=== PATIENT | female | born 1940 | race Caucasian/White ===

== ENCOUNTER → 2016-06-05 | Outpatient (REF) | payer MEDICARE, MEDICAID ==
[~2016-06-05] MED LIST: ACET650T12 PO; ALBU17IN2 INH; AMAR1TAB5 PO; ASPI1TAB PO; ATOR40TA PO; BISO5TAB5 PO; CALCTAB68 PO; CELE100C PO; ESOM1CAP5 PO; FOLI1TAB2 PO; GLIM4TAB PO; GLUC850T PO; HYDR200T3 PO; KEPP500T6 PO; LIPI20TA PO; MECL12.575 PO; MECL25CH PO; METH2.5TA PO; MICR10CA PO; NEXI1CAP4 PO; NYST100024 TOP; SLOWTAB2 PO; TRAD5TAB PO; TRIA37.5 PO; ULTR0.0510 TOP; VALS1TAB48 PO; VITA50003 PO; XOPEAER INH; ZOFR20TA PO; ZYLO300T4 PO
[2016-06-05 17:49] LABS: BASO # 0.1 K/mm3 (0.0-0.2); BASO % 0.7 % (0.0-1.0); EOS # 0.2 K/mm3 (0.0-0.50); EOS % 2.3 % (0.0-3.0); LARGE UNSTAINED CELL # 0.1 K/mm3 (0.0-0.4); LARGE UNSTAINED CELL % 1.5 % (0.0-4.0); LYMPH # 2.4 K/mm3 (1.5-4.5); MEAN CORPUSCULAR HEMOGLOBIN 24.2 pg (27.0-33.0); MEAN CORPUSCULAR VOLUME 80.6 fl (80.0-96.0); MONO # 0.4 K/mm3 (0.0-0.8); MONO % 4.9 % (0.0-5.0); NEUTROPHILS % 65.7 % (36.0-66.0); PLATELET COUNT, AUTOMATED 268 k/mm3 (150-450); RED CELL DISTRIBUTION WIDTH 16.2 % (11.5-14.5); WHITE BLOOD COUNT 9.1 K/mm3 (4.0-10.0)
[2016-06-05 17:50] LABS: ALBUMIN 3.4 GM/DL (3.2-5.2); ALBUMIN/GLOBULIN RATIO 0.85 (1.00-1.93); ALKALINE PHOSPHATASE 235 U/L (45-117); ALT/SGPT 16 U/L (12-78); ANION GAP 9 MEQ/L (8-16); AST/SGOT 19 U/L (15-37); BILIRUBIN,TOTAL 0.3 MG/DL (0.2-1.0); BLOOD UREA NITROGEN 15 MG/DL (7-18); CALCIUM LEVEL 8.9 MG/DL (8.8-10.2); CARBON DIOXIDE LEVEL 27 MEQ/L (21-32); CHLORIDE LEVEL 107 MEQ/L (98-107); CREATININE FOR GFR 0.89 MG/DL (0.55-1.02); FERRITIN 10 NG/ML (8-252); GLOMERULAR FILTRATION RATE > 60.0 (>39); GLUCOSE, FASTING 105 MG/DL (83-110); PERCENT SATURATION 7.4 % (13.2-37.4); SODIUM LEVEL 143 MEQ/L (136-145); TOTAL IRON BINDING CAPACITY 471 UG/DL (250-450); TOTAL PROTEIN 7.4 GM/DL (6.4-8.2)
[2016-06-05 17:51] LABS: ADD MORPHOLOGY? YES
[2016-06-05 18:52] LABS: ANISOCYTOSIS 1+; HYPOCHROMASIA 1+; OVALOCYTES 1+; POIKILOCYTOSIS 1+
== END ==
LOC: M LABNEURO 16:54
PROVIDERS: ATTEND Family Medicine
DX: D50.9 Iron deficiency anemia, unspecified (principal); N18.3 Chronic kidney disease, stage 3 (moderate); E11.9 Type 2 diabetes mellitus without complications; M10.9 Gout, unspecified; N20.0 Calculus of kidney; R31.0 Gross hematuria

== ENCOUNTER → 2016-07-25 | Outpatient (REF) | payer MEDICARE, MEDICAID ==
[~2016-07-25] MED LIST changes: +TUMS500C PO
[2016-07-25 18:34] LABS: BASO # 0.1 K/mm3 (0.0-0.2); BASO % 0.7 % (0.0-1.0); EOS # 0.2 K/mm3 (0.0-0.50); LARGE UNSTAINED CELL # 0.2 K/mm3 (0.0-0.4); LARGE UNSTAINED CELL % 1.7 % (0.0-4.0); LYMPH # 3.1 K/mm3 (1.5-4.5); LYMPH % 26.6 % (24.0-44.0); MEAN CORPUSCULAR HEMOGLOBIN 25.1 pg (27.0-33.0); MEAN CORPUSCULAR HGB CONC 30.1 g/dl (32.0-36.5); MEAN CORPUSCULAR VOLUME 83.4 fl (80.0-96.0); MONO # 0.5 K/mm3 (0.0-0.8); MONO % 4.2 % (0.0-5.0); NEUTROPHILS # 7.1 K/mm3 (1.8-7.7); NEUTROPHILS % 64.8 % (36.0-66.0); PLATELET COUNT, AUTOMATED 279 k/mm3 (150-450); RED CELL DISTRIBUTION WIDTH 15.8 % (11.5-14.5); WHITE BLOOD COUNT 10.9 K/mm3 (4.0-10.0)
[2016-07-25 19:16] LABS: INR 0.95
[2016-07-25 19:40] LABS: ALBUMIN 3.3 GM/DL (3.2-5.2); ALBUMIN/GLOBULIN RATIO 0.77 (1.00-1.93); BILIRUBIN,TOTAL 0.3 MG/DL (0.2-1.0); CALCIUM LEVEL 8.9 MG/DL (8.8-10.2); CREATININE FOR GFR 0.96 MG/DL (0.55-1.02); GLOMERULAR FILTRATION RATE 59.8 (>39); MAGNESIUM LEVEL 1.6 MG/DL (1.8-2.4); PERCENT SATURATION 5.5 % (13.2-37.4); POTASSIUM SERUM 4.6 MEQ/L (3.5-5.1); TOTAL PROTEIN 7.6 GM/DL (6.4-8.2)
== END ==
LOC: M LABDRAWP 18:15
PROVIDERS: ATTEND Family Medicine
DX: Z01.818 Encounter for other preprocedural examination (principal); I10 Essential (primary) hypertension; D50.0 Iron deficiency anemia secondary to blood loss (chronic); E11.9 Type 2 diabetes mellitus without complications

== ENCOUNTER → 2016-08-02 | Day surgery (SDC) | payer MEDICARE, MEDICAID ==
[~2016-08-02] VITALS: Ht 149.9 cm; Wt 77.1 kg
[~2016-08-02] MED LIST changes: +ACETAMINOPHEN 325 MG TAB PO PRN; +AcetaZOLAMIDE 500 MG ER CAP PO ONE; +BSS with VANC/TOB/EPI for EYE CASES IR ONE; +CYCLOPENTOLATE 2% OPHTH SOLN OD ONE; +D5W/0.2% SODIUM CHLORIDE 250 ML IV SCH; +HEALON DUET (HEALON 10MG/ML 0.55ML & HEALON ENDOCOAT 30MG/ML 0.85ML) As Ordered ONE; +KETOROLAC 0.5% OPHTH SOLN OD ONE; +LIDOCAINE 1% SDV 5 ML VIAL As Ordered ONE; +LIDOCAINE 4% INJ 5 ML AMP OU ONE; +MIDAZOLAM INJ 2 MG/2 ML VIAL (J2250) As Ordered ONE; +MOXIFLOXACIN IN BSS 0.25MG/0.25ML INTRACAMERAL INJ (OR EYE ONLY)(J2280) As Ordered ONE; +OFLOXACIN 0.3 % (OCUFLOX) OPTH SOL 5ML OD ONE; +ONDANSETRON 4MG/2ML VIAL (J2405) As Ordered ONE; +ONDANSETRON 4MG/2ML VIAL (J2405) IV PRN; +PHENYLEPHRINE 2.5% OPHTH SOL 2ML OD ONE; +POVIDONE-IODINE 5% OPHTH PREP SOL 30ML As Ordered ONE; +PROPARACAINE 0.5% OPHTH SOL 15ML OD PRN; +TRIAMCINOLONE PRES FR 40 MG/ML 1ML(TRIESENCE)(OR EYE ONLY)(J3300 PER 1MG) As Ordered ONE; +TRIMETHOBENZAMIDE 300 MG CAP PO PRN; +TROPICAMIDE 1% OPHTH SOLN 2 ML OD ONE; +fentaNYL 100 MCG/2 ML INJECTION (J3010) As Ordered ONE; +ferous sulfate PO
[2016-08-02 11:15] VITALS: BP 175/75
--- NOTE | 2016-08-02 11:48 | RO ---
DATE OF PROCEDURE: 08/02/2016 PREPROCEDURE DIAGNOSIS: Cataract of right eye. POSTPROCEDURE DIAGNOSIS: Cataract of right eye. PROCEDURE: Femtosecond laser and phacoemulsification of the intraocular lens with lens implantation right eye. Intraocular lens power used was PBC00, 22.5 diopter. SURGEON: Rian New MD CAST ASSOCIATE: None. ANESTHESIA: Local IV standby. FINDINGS: Cataract of right eye. COMPLICATIONS: None. DESCRIPTION OF PROCEDURE: The patient was brought to the operating room and laid in supine position. A lid speculum was placed, and patient was brought under the femtosecond laser. After the satisfactory placement of the patient interface, primary incision, secondary incision, and arcuate incisions with lens fragmentation was done without any complication per plan. The patients interface was then removed and lid speculum removed. Patient was placed under the microscope. The eye was prepped and draped in a sterile fashion for ophthalmic surgery. Lid speculum was placed. The secondary incision was opened, and EndoCoat was injected into the anterior chamber. The temporal clear corneal incision was then opened and capsulorrhexis removed, followed by hydrodissection. This was followed by phacoemulsification of the lens within the capsular bag. Cortical material was then aspirated, and Healon was injected into the capsular bag. Intraocular lens was then placed. Excess Healon was aspirated. Wound was hydrated. The lid speculum was removed, and patient was returned to the recovery room in stable condition.
== END | disposition home or self-care (01) ==
LOC: M SDC 07:21
PROVIDERS: ATTEND Ophthalmology
DX: H25.9 Unspecified age-related cataract (principal); I10 Essential (primary) hypertension; E11.9 Type 2 diabetes mellitus without complications; Z86.73 Personal history of transient ischemic attack (TIA), and cerebral infarction without residual deficits; K21.9 Gastro-esophageal reflux disease without esophagitis; D64.9 Anemia, unspecified; L40.8 Other psoriasis; Z91.040 Latex allergy status; Z88.7 Allergy status to serum and vaccine; Z79.899 Other long term (current) drug therapy
CPT/HCPCS: 66984; J2250; J2405; J3010; J3300; V2632

== ENCOUNTER → 2016-08-28 | Outpatient (CLI) | payer MEDICARE, MEDICAID ==
[~2016-08-28] MED LIST changes: -ACETAMINOPHEN 325 MG TAB PO PRN; -AcetaZOLAMIDE 500 MG ER CAP PO ONE; -BSS with VANC/TOB/EPI for EYE CASES IR ONE; -CYCLOPENTOLATE 2% OPHTH SOLN OD ONE; -D5W/0.2% SODIUM CHLORIDE 250 ML IV SCH; -HEALON DUET (HEALON 10MG/ML 0.55ML & HEALON ENDOCOAT 30MG/ML 0.85ML) As Ordered ONE; -KETOROLAC 0.5% OPHTH SOLN OD ONE; -LIDOCAINE 1% SDV 5 ML VIAL As Ordered ONE; -LIDOCAINE 4% INJ 5 ML AMP OU ONE; -MIDAZOLAM INJ 2 MG/2 ML VIAL (J2250) As Ordered ONE; -MOXIFLOXACIN IN BSS 0.25MG/0.25ML INTRACAMERAL INJ (OR EYE ONLY)(J2280) As Ordered ONE; -OFLOXACIN 0.3 % (OCUFLOX) OPTH SOL 5ML OD ONE; -ONDANSETRON 4MG/2ML VIAL (J2405) As Ordered ONE; -ONDANSETRON 4MG/2ML VIAL (J2405) IV PRN; -PHENYLEPHRINE 2.5% OPHTH SOL 2ML OD ONE; -POVIDONE-IODINE 5% OPHTH PREP SOL 30ML As Ordered ONE; -PROPARACAINE 0.5% OPHTH SOL 15ML OD PRN; -TRIAMCINOLONE PRES FR 40 MG/ML 1ML(TRIESENCE)(OR EYE ONLY)(J3300 PER 1MG) As Ordered ONE; -TRIMETHOBENZAMIDE 300 MG CAP PO PRN; -TROPICAMIDE 1% OPHTH SOLN 2 ML OD ONE; -fentaNYL 100 MCG/2 ML INJECTION (J3010) As Ordered ONE
--- NOTE | 2016-08-28 13:16 | REP ---
Digital diagnostic unilateral right breast mammogram with CAD: History: 6-month follow-up for ultrasound-guided cyst aspiration. Comparison mammography April 07, 2016 and February 23, 2016. Findings: The nodular density seen in the upper outer quadrant of the right breast on the February 23, 2016 study has resolved and not recurred. Breast parenchyma remains fat replaced otherwise. There are inspissated ductal type benign calcifications and there is vascular calcification noted in the right breast as before. No neodensity or other significant abnormality. Impression: BIRADS category 1 negative right breast mammogram. This mammogram was interpreted with the aid of an FDA-approved computer-aided detection system. The patient states she/he had a clinical breast exam in March 28, 2016 The patient letter being requested is M2. Signed by Nader Chandler MD 08/28/2016 02:34 P
== END ==
LOC: M RAD 11:08
PROVIDERS: ATTEND Family Medicine
DX: Z12.31 Encounter for screening mammogram for malignant neoplasm of breast (principal)

== ENCOUNTER → 2016-12-25 | Outpatient (REF) | payer MEDICARE, MEDICAID ==
[~2016-12-25] MED LIST changes: -ATOR40TA PO; +ATOR40TA75 PO; -FOLI1TAB2 PO; +FOLI1TAB4 PO; +KEPP1TAB PO; -KEPP500T6 PO; +LEVAINH INH; +MECL1CHW2 PO; -MECL25CH PO; -NYST100024 TOP; +NYST1POW9 TOP; +VITA1CAP40 PO; -VITA50003 PO; -XOPEAER INH
[2016-12-25 13:28] LABS: ALBUMIN 3.1 GM/DL (3.2-5.2); ALBUMIN/GLOBULIN RATIO 0.79 (1.00-1.93); BILIRUBIN,TOTAL 0.3 MG/DL (0.2-1.0); CALCIUM LEVEL 9.3 MG/DL (8.8-10.2); CREATININE FOR GFR 0.96 MG/DL (0.55-1.02); GLOMERULAR FILTRATION RATE 59.8 (>39); PERCENT SATURATION 10.6 % (13.2-45.0); POTASSIUM SERUM 4.3 MEQ/L (3.5-5.1)
[2016-12-25 13:54] LABS: BASO # 0.1 K/mm3 (0.0-0.2); BASO % 0.6 % (0.0-1.0); EOS # 0.2 K/mm3 (0.0-0.50); EOS % 1.8 % (0.0-3.0); LARGE UNSTAINED CELL # 0.1 K/mm3 (0.0-0.4); LARGE UNSTAINED CELL % 1.4 % (0.0-4.0); LYMPH # 1.8 K/mm3 (1.5-4.5); MEAN CORPUSCULAR HEMOGLOBIN 28.7 pg (27.0-33.0); MEAN CORPUSCULAR HGB CONC 32.7 g/dl (32.0-36.5); MONO # 0.4 K/mm3 (0.0-0.8); MONO % 4.5 % (0.0-5.0); NEUTROPHILS # 6.6 K/mm3 (1.8-7.7); NEUTROPHILS % 71.7 % (36.0-66.0); PLATELET COUNT, AUTOMATED 250 k/mm3 (150-450); RED CELL DISTRIBUTION WIDTH 14.7 % (11.5-14.5); WHITE BLOOD COUNT 9.2 K/mm3 (4.0-10.0)
== END ==
LOC: M LABDRAW1 12:49
PROVIDERS: ATTEND Family Medicine
DX: D50.9 Iron deficiency anemia, unspecified (principal); E78.5 Hyperlipidemia, unspecified; E11.9 Type 2 diabetes mellitus without complications

== ENCOUNTER → 2017-01-19 | Outpatient (REF) | payer MEDICARE, MEDICAID | LOC: M LABDRAW1 13:52 | PROVIDERS: ATTEND Family Medicine | DX: M45.9 Ankylosing spondylitis of unspecified sites in spine (principal); E11.9 Type 2 diabetes mellitus without complications ==

== ENCOUNTER → 2017-04-11 | Outpatient (REF) | payer MEDICARE, MEDICAID ==
[2017-04-11 12:25] LABS: BASO # 0.1 10^3/uL (0.0-0.2); BASO % 0.6 % (0.0-1.0); EOS # 0.1 10^3/uL (0.0-0.50); EOS % 0.9 % (0.0-3.0); HEMATOCRIT 38.8 % (36.0-47.0); HEMOGLOBIN 11.9 g/dl (12.0-16.0); IMMATURE GRANULOCYTE % 0.4 % (0-0); LYMPH # 1.1 10^3/uL (1.5-4.5); LYMPH % 13.5 % (24.0-44.0); MEAN CORPUSCULAR HEMOGLOBIN 26.6 pg (27.0-33.0); MEAN CORPUSCULAR HGB CONC 30.7 g/dl (32.0-36.5); MEAN CORPUSCULAR VOLUME 86.8 fl (80.0-96.0); MONO # 0.5 10^3/uL (0.0-0.8); MONO % 6.7 % (0.0-5.0); NEUTROPHILS # 6.1 10^3/uL (1.8-7.7); NEUTROPHILS % 77.9 % (36.0-66.0); PLATELET COUNT, AUTOMATED 295 10^3/uL (150-450); RED BLOOD COUNT 4.47 10^6/uL (4.00-5.40); RED CELL DISTRIBUTION WIDTH 14.6 % (11.5-14.5); WHITE BLOOD COUNT 7.9 10^3/uL (4.0-10.0)
[2017-04-11 12:34] LABS: PTH INTACT 61.4 PG/ML (14.0-72.0); TOTAL 25(OH) VITAMIN D 95.5 NG/ML (30.0-100.0); VITAMIN B12 LEVEL 947 PG/ML (247-911)
[2017-04-11 12:36] LABS: ALBUMIN 3.4 GM/DL (3.2-5.2); ALBUMIN/GLOBULIN RATIO 0.85 (1.00-1.93); ALKALINE PHOSPHATASE 225 U/L (45-117); ALT/SGPT 23 U/L (12-78); ANION GAP 8 MEQ/L (8-16); AST/SGOT 22 U/L (7-37); BILIRUBIN,TOTAL 0.3 MG/DL (0.2-1.0); BLOOD UREA NITROGEN 18 MG/DL (7-18); CALCIUM LEVEL 8.8 MG/DL (8.8-10.2); CARBON DIOXIDE LEVEL 29 MEQ/L (21-32); CHLORIDE LEVEL 103 MEQ/L (98-107); CREATININE FOR GFR 1.05 MG/DL (0.55-1.02); FERRITIN 64 NG/ML (8-252); GLUCOSE, FASTING 182 MG/DL (83-110); IRON (FE) 31 UG/DL (50-170); POTASSIUM SERUM 4.1 MEQ/L (3.5-5.1); SODIUM LEVEL 140 MEQ/L (136-145); TOTAL IRON BINDING CAPACITY 344 UG/DL (250-450); TOTAL PROTEIN 7.4 GM/DL (6.4-8.2)
[2017-04-11 13:30] LABS: ESTIMATED AVERAGE GLUCOSE 186 MG/DL (60-110); HEMOGLOBIN A1c 8.1 %
== END ==
LOC: M LABNEURO 10:38
DX: D50.9 Iron deficiency anemia, unspecified (principal); E55.9 Vitamin D deficiency, unspecified; E11.9 Type 2 diabetes mellitus without complications
CPT/HCPCS: 83550

== ENCOUNTER → 2017-07-10 | Outpatient (REF) | payer MEDICARE, MEDICAID ==
[2017-07-10 13:10] LABS: BASO # 0.1 10^3/uL (0.0-0.2); BASO % 0.5 % (0.0-1.0); EOS # 0.1 10^3/uL (0.0-0.50); EOS % 0.7 % (0.0-3.0); HEMATOCRIT 38.1 % (36.0-47.0); HEMOGLOBIN 11.8 g/dl (12.0-15.5); IMMATURE GRANULOCYTE % 0.7 % (0-3.0); LYMPH # 2.5 10^3/uL (1.5-4.5); LYMPH % 21.1 % (24.0-44.0); MEAN CORPUSCULAR HEMOGLOBIN 27.8 pg (27.0-33.0); MEAN CORPUSCULAR VOLUME 89.6 fl (80.0-96.0); MONO # 0.5 10^3/uL (0.0-0.8); MONO % 3.7 % (0.0-5.0); NEUTROPHILS # 8.9 10^3/uL (1.8-7.7); NEUTROPHILS % 73.3 % (36.0-66.0); PLATELET COUNT, AUTOMATED 236 10^3/uL (150-450); RED BLOOD COUNT 4.25 10^6/uL (4.00-5.40); RED CELL DISTRIBUTION WIDTH 15.4 % (11.5-14.5); RETIC HEMOGLOBIN EQUIVALENT 31.2 pg (24-36); RETICULOCYTE # 57.4 10^9/L (17-77); RETICULOCYTE % 1.4 % (0.5-1.5); WHITE BLOOD COUNT 12.1 10^3/uL (4.0-10.0)
[2017-07-10 13:16] LABS: APPEARANCE, URINE HAZY (CLEAR); BACTERIA, URINE AUTO 1+ (NEGATIVE); BILIRUBIN, URINE AUTO NEGATIVE (NEGATIVE); BLOOD, URINE BLOOD 1+ (NEGATIVE); COLOR, URINE STRAW (YELLOW); GLUCOSE, URINE (UA) AUTO NEGATIVE (NEGATIVE); KETONE, URINE AUTO NEGATIVE (NEGATIVE); LEUKOCYTE ESTERASE, URINE AUTO 3+ (NEGATIVE); MUCUS, URINE SMALL (NEGATIVE); NITRITE, URINE AUTO NEGATIVE (NEGATIVE); PROTEIN, URINE AUTO NEGATIVE (NEGATIVE); RBC, URINE AUTO 8 /HPF (0-3); SPECIFIC GRAVITY URINE AUTO 1.005 (1.002-1.035); SQUAMOUS EPITHELIAL CELL UR AU 3 /HPF (0-6); UROBILINOGEN, URINE AUTO 0.2 mg/dL (0.0-2.0); WBC, URINE AUTO 7 /HPF (0-3)
[2017-07-10 13:32] LABS: ALBUMIN 3.6 GM/DL (3.2-5.2); ALKALINE PHOSPHATASE 177 U/L (45-117); ALT/SGPT 28 U/L (12-78); ANION GAP 6 MEQ/L (8-16); AST/SGOT 25 U/L (7-37); BILIRUBIN,TOTAL 0.3 MG/DL (0.2-1.0); BLOOD UREA NITROGEN 16 MG/DL (7-18); CALCIUM LEVEL 9.2 MG/DL (8.8-10.2); CARBON DIOXIDE LEVEL 29 MEQ/L (21-32); CHLORIDE LEVEL 110 MEQ/L (98-107); CREATININE FOR GFR 0.97 MG/DL (0.55-1.30); GLOMERULAR FILTRATION RATE 59.1 (>39); GLUCOSE, FASTING 114 MG/DL (70-100); MAGNESIUM LEVEL 1.8 MG/DL (1.8-2.4); POTASSIUM SERUM 4.4 MEQ/L (3.5-5.1); SODIUM LEVEL 145 MEQ/L (136-145); TOTAL PROTEIN 7.6 GM/DL (6.4-8.2)
[2017-07-10 13:44] LABS: ESTIMATED AVERAGE GLUCOSE 186 MG/DL (60-110); HEMOGLOBIN A1c 8.1 %
[2017-07-10 13:49] LABS: CREATININE, URINE < 13.0 MG/DL; MALB URINE SIEMENS 83.1 MG/L
== END ==
LOC: M SFHCPLAZ 10:52
DX: G40.909 Epilepsy, unspecified, not intractable, without status epilepticus (principal); E11.9 Type 2 diabetes mellitus without complications; N18.3 Chronic kidney disease, stage 3 (moderate); E55.9 Vitamin D deficiency, unspecified; D50.9 Iron deficiency anemia, unspecified
CPT/HCPCS: 83735

== ENCOUNTER → 2017-08-29 | Outpatient (CLI) | payer MEDICARE, MEDICAID | LOC: M WHC 13:07 | DX: Z12.31 Encounter for screening mammogram for malignant neoplasm of breast (principal); M85.80 Other specified disorders of bone density and structure, unspecified site | CPT/HCPCS: 77067 ==

== ENCOUNTER → 2017-10-23 | Outpatient (REF) | payer MEDICARE, MEDICAID ==
[2017-10-23 13:13] LABS: BASO # 0.1 10^3/uL (0.0-0.2); BASO % 0.4 % (0.0-1.0); EOS # 0.1 10^3/uL (0.0-0.50); EOS % 0.7 % (0.0-3.0); HEMATOCRIT 40.9 % (36.0-47.0); HEMOGLOBIN 12.9 g/dl (12.0-15.5); IMMATURE GRANULOCYTE % 0.7 % (0-3.0); LYMPH # 3.1 10^3/uL (1.5-4.5); LYMPH % 25.4 % (24.0-44.0); MEAN CORPUSCULAR HEMOGLOBIN 29.1 pg (27.0-33.0); MEAN CORPUSCULAR HGB CONC 31.5 g/dl (32.0-36.5); MEAN CORPUSCULAR VOLUME 92.1 fl (80.0-96.0); MONO # 0.6 10^3/uL (0.0-0.8); MONO % 4.7 % (0.0-5.0); NEUTROPHILS # 8.3 10^3/uL (1.8-7.7); NEUTROPHILS % 68.1 % (36.0-66.0); PLATELET COUNT, AUTOMATED 242 10^3/uL (150-450); RED BLOOD COUNT 4.44 10^6/uL (4.00-5.40); RETIC HEMOGLOBIN EQUIVALENT 33.8 pg (24-36); RETICULOCYTE # 72.8 10^9/L (17-77); RETICULOCYTE % 1.6 % (0.5-1.5); WHITE BLOOD COUNT 12.2 10^3/uL (4.0-10.0)
[2017-10-23 13:31] LABS: ALBUMIN 3.6 GM/DL (3.2-5.2); ALBUMIN/GLOBULIN RATIO 0.88 (1.00-1.93); ALKALINE PHOSPHATASE 152 U/L (45-117); ALT/SGPT 23 U/L (12-78); ANION GAP 8 MEQ/L (8-16); AST/SGOT 13 U/L (7-37); BILIRUBIN,TOTAL 0.4 MG/DL (0.2-1.0); BLOOD UREA NITROGEN 22 MG/DL (7-18); C REACTIVE PROTEIN QUANTITATIV 0.46 MG/DL (0.00-0.30); CALCIUM LEVEL 9.3 MG/DL (8.8-10.2); CARBON DIOXIDE LEVEL 32 MEQ/L (21-32); CHLORIDE LEVEL 105 MEQ/L (98-107); CHOLESTEROL LEVEL 153 MG/DL (<200); CHOLESTEROL RISK RATIO 2.318 (<5); CPK CREATINE PHOSPHOKINASE 61 U/L (26-192); CREATININE FOR GFR 1.22 MG/DL (0.55-1.30); GLOMERULAR FILTRATION RATE 45.3 (>39); GLUCOSE, FASTING 124 MG/DL (70-100); HDL CHOLESTEROL 66 MG/DL (>40); LDL CHOLESTEROL 58.6 MG/DL (<100); NON-HDL-C 87 MG/DL; POTASSIUM SERUM 3.7 MEQ/L (3.5-5.1); SODIUM LEVEL 145 MEQ/L (136-145); TOTAL PROTEIN 7.7 GM/DL (6.4-8.2); TRIGLYCERIDES LEVEL 142 MG/DL (<150)
[2017-10-23 13:48] LABS: ESTIMATED AVERAGE GLUCOSE 209 MG/DL (60-110); HEMOGLOBIN A1c 8.9 %
[2017-10-23 13:58] LABS: PTH INTACT 73.2 PG/ML (18.5-88.0); TOTAL 25(OH) VITAMIN D 80.9 NG/ML (30.0-100.0)
[2017-10-23 18:04] LABS: APPEARANCE, URINE CLEAR (CLEAR); BACTERIA, URINE AUTO 1+ (NEGATIVE); BILIRUBIN, URINE AUTO NEGATIVE (NEGATIVE); BLOOD, URINE BLOOD NEGATIVE (NEGATIVE); COLOR, URINE STRAW (YELLOW); GLUCOSE, URINE (UA) AUTO NEGATIVE (NEGATIVE); KETONE, URINE AUTO NEGATIVE (NEGATIVE); LEUKOCYTE ESTERASE, URINE AUTO 1+ (NEGATIVE); MUCUS, URINE SMALL (NEGATIVE); NITRITE, URINE AUTO NEGATIVE (NEGATIVE); PROTEIN, URINE AUTO NEGATIVE (NEGATIVE); RBC, URINE AUTO 2 /HPF (0-3); SPECIFIC GRAVITY URINE AUTO 1.008 (1.002-1.035); SQUAMOUS EPITHELIAL CELL UR AU 4 /HPF (0-6); UROBILINOGEN, URINE AUTO 0.2 mg/dL (0.0-2.0); WBC, URINE AUTO 1 /HPF (0-3)
[2017-10-23 18:05] LABS: CREATININE, URINE 36.9 MG/DL; MAU/CREAT RATIO 211.3 MCG/MG (0.0-30.0)
== END ==
LOC: M SFHCPLAZ 10:53
DX: E78.5 Hyperlipidemia, unspecified (principal); M10.9 Gout, unspecified; E11.9 Type 2 diabetes mellitus without complications; D50.9 Iron deficiency anemia, unspecified; E55.9 Vitamin D deficiency, unspecified; Z68.36 Body mass index [BMI] 36.0-36.9, adult
CPT/HCPCS: 82550

== ENCOUNTER → 2018-04-26 | Outpatient (CLI) | payer MEDICARE, MEDICAID ==
[~2018-04-26] MED LIST changes: +FOLI1TAB11 PO; -FOLI1TAB4 PO; +ISOVUE-370 76% 100ML VIAL (Q9967) As Ordered ONE; +METH2.5T48 PO; -METH2.5TA PO; -VITA1CAP40 PO; +VITA50005 PO; -ZOFR20TA PO; +ZOFR4TAB16 PO; -ZYLO300T4 PO; +ZYLO300T6 PO
== END ==
LOC: M RAD 10:55
PROVIDERS: ATTEND Family Medicine
DX: I25.10 Atherosclerotic heart disease of native coronary artery without angina pectoris (principal)

== ENCOUNTER → 2018-08-30 | Outpatient (REF) | payer MEDICARE, MEDICAID ==
[~2018-08-30] MED LIST changes: -ASPI1TAB PO; +ASPI81TA26 PO; -ISOVUE-370 76% 100ML VIAL (Q9967) As Ordered ONE; +MECL1CHW PO; -MECL1CHW2 PO; -VALS1TAB48 PO; +VALS1TAB68 PO
[2018-08-30 18:10] LABS: INR 0.95; PROTHROMBIN TIME 12.8 SECONDS (12.1-14.4)
[2018-08-30 18:11] LABS: PARTIAL THROMBOPLASTIN TIME 26.9 SECONDS (25.4-37.6)
[2018-08-30 18:26] LABS: ALBUMIN 3.4 GM/DL (3.2-5.2); BILIRUBIN,TOTAL 0.4 MG/DL (0.2-1.0); CALCIUM LEVEL 8.9 MG/DL (8.8-10.2); CHOLESTEROL RISK RATIO 2.938 (<5); CREATININE FOR GFR 1.19 MG/DL (0.55-1.30); FREE T4 1.14 NG/DL (0.76-1.46); GLOMERULAR FILTRATION RATE 46.5 (>32); MAGNESIUM LEVEL 1.8 MG/DL (1.8-2.4); POTASSIUM SERUM 3.8 MEQ/L (3.5-5.1); THYROID STIMULATING HORMONE 1.01 uIU/ML (0.358-3.740); TOTAL PROTEIN 7.7 GM/DL (6.4-8.2)
[2018-08-30 18:35] LABS: HEMOGLOBIN A1c 8.5 %
[2018-09-02 09:01] LABS: PTH INTACT 60.4 PG/ML (18.5-88.0); TOTAL 25(OH) VITAMIN D 66.2 NG/ML (30.0-100.0)
== END ==
LOC: M SFHCPLAZ 14:58
PROVIDERS: ATTEND Family Medicine
DX: E11.9 Type 2 diabetes mellitus without complications (principal); E55.9 Vitamin D deficiency, unspecified; R74.8 Abnormal levels of other serum enzymes

== ENCOUNTER → 2018-09-04 | Outpatient (REF) | payer MEDICARE, MEDICAID ==
[2018-09-04 18:09] LABS: APPEARANCE, URINE CLOUDY (CLEAR); BACTERIA, URINE AUTO 1+ (NEGATIVE); BILIRUBIN, URINE AUTO NEGATIVE (NEGATIVE); BLOOD, URINE BLOOD 1+ (NEGATIVE); COLOR, URINE YELLOW (YELLOW); GLUCOSE, URINE (UA) AUTO NEGATIVE (NEGATIVE); KETONE, URINE AUTO NEGATIVE (NEGATIVE); LEUKOCYTE ESTERASE, URINE AUTO 3+ (NEGATIVE); MUCUS, URINE SMALL (NEGATIVE); NITRITE, URINE AUTO NEGATIVE (NEGATIVE); PROTEIN, URINE AUTO NEGATIVE (NEGATIVE); RBC, URINE AUTO 6 /HPF (0-3); SPECIFIC GRAVITY URINE AUTO 1.005 (1.002-1.035); SQUAMOUS EPITHELIAL CELL UR AU 2 /HPF (0-6); UROBILINOGEN, URINE AUTO 0.2 mg/dL (0.0-2.0); WBC, URINE AUTO 175 /HPF (0-3)
== END ==
LOC: M LAB REF 16:00
PROVIDERS: ATTEND Psychiatry & Neurology Neurology
DX: N39.0 Urinary tract infection, site not specified (principal)

== ENCOUNTER → 2018-10-16 | Outpatient (REF) | payer MEDICARE, MEDICAID ==
[2018-10-16 17:45] LABS: BASO # 0.1 10^3/uL (0.0-0.2); BASO % 0.6 % (0.0-1.0); EOS # 0.1 10^3/uL (0.0-0.50); EOS % 0.9 % (0.0-3.0); HEMATOCRIT 36.5 % (36.0-47.0); HEMOGLOBIN 11.2 g/dl (12.0-15.5); LYMPH # 2.5 10^3/uL (1.5-4.5); LYMPH % 18.7 % (24.0-44.0); MEAN CORPUSCULAR HGB CONC 30.7 g/dl (32.0-36.5); MEAN CORPUSCULAR VOLUME 94.6 fl (80.0-96.0); MONO # 0.8 10^3/uL (0.0-0.8); NEUTROPHILS # 9.7 10^3/uL (1.8-7.7); PLATELET COUNT, AUTOMATED 253 10^3/uL (150-450); RED BLOOD COUNT 3.86 10^6/uL (4.00-5.40); WHITE BLOOD COUNT 13.3 10^3/uL (4.0-10.0)
[2018-10-16 17:57] LABS: ALBUMIN 3.7 GM/DL (3.2-5.2); BILIRUBIN,TOTAL 0.4 MG/DL (0.2-1.0); CALCIUM LEVEL 8.8 MG/DL (8.8-10.2); CHOLESTEROL RISK RATIO 2.625 (<5); CREATININE FOR GFR 1.12 MG/DL (0.55-1.30); GLOMERULAR FILTRATION RATE 49.8 (>32); POTASSIUM SERUM 3.7 MEQ/L (3.5-5.1); TOTAL PROTEIN 7.1 GM/DL (6.4-8.2)
[2018-10-16 18:48] LABS: HEMOGLOBIN A1c 8.2 %
== END ==
LOC: M LABNEURO 13:02
PROVIDERS: ATTEND Family Medicine
DX: D50.9 Iron deficiency anemia, unspecified (principal); I10 Essential (primary) hypertension

== ENCOUNTER → 2018-11-13 | Outpatient (CLI) | payer MEDICARE, MEDICAID ==
[~2018-11-13] MED LIST changes: +BISO5TAB14 PO; -BISO5TAB5 PO; -GLIM4TAB PO; +GLIM4TAB5 PO; -MECL12.575 PO; +MECL12.589 PO
--- NOTE | 2018-11-13 12:12 | REPMRS ---
Patient History The patient states she has not had a clinical breast exam in over a year. Family history of breast cancer at age 50 or over in daughter. Benign US guided breast biopsy of the right breast, April 07, 2016. 3D TOMOSYNTHESIS WAS PERFORMED. [facility] for [facility] 2.[facility]%. Digital Woman Screen Mammo: November 13, 2018 - Exam #: [id number] Bilateral CC and MLO view(s) were taken. Technologist: Ayde Culver, Technologist Prior study comparison: August 29, 2017, digital woman screen mammo performed at [facility]. August 28, 2016, right breast digital mamm[facility] diagnostic unilateral[facility] FINDINGS: There are scattered fibroglandular densities. There has been no change in the appearance of the mammogram from the prior studies. There is a mild amount of residual fibroglandular tissue which is fairly symmetric. There is no interval development of dominant mass, architectural distortion, or clustered microcalcification suggestive of malignancy. Assessment: BI-RADS/ACR category 1 mammogram. Negative Mammogram. Recommendation Routine screening mammogram in 1 year (for women over age 40). This mammogram was interpreted with the aid of an FDA-approved computer-aided dectection system. Electronically Signed By: Jersey Markham MD 11/13/18 0036
== END ==
LOC: M WHC 09:58
PROVIDERS: ATTEND Family Medicine
DX: Z12.31 Encounter for screening mammogram for malignant neoplasm of breast (principal); Z80.3 Family history of malignant neoplasm of breast

== ENCOUNTER → 2018-11-15 | Outpatient (REF) | payer MEDICARE, MEDICAID ==
[~2018-11-15] MED LIST changes: -BISO5TAB14 PO; +BISO5TAB5 PO; +GLIM4TAB PO; -GLIM4TAB5 PO; +MECL12.575 PO; -MECL12.589 PO
[2018-11-15 12:49] LABS: ALBUMIN 3.5 GM/DL (3.2-5.2); BLOOD UREA NITROGEN 23 MG/DL (7-18); C REACTIVE PROTEIN QUANTITATIV < 0.30 MG/DL (0.00-0.30); CALCIUM LEVEL 9.4 MG/DL (8.8-10.2); CARBON DIOXIDE LEVEL 29 MEQ/L (21-32); CHLORIDE LEVEL 110 MEQ/L (98-107); CREATININE FOR GFR 1.08 MG/DL (0.55-1.30); GLUCOSE, FASTING 155 MG/DL (70-100); MAGNESIUM LEVEL 1.7 MG/DL (1.8-2.4); NT-PRO BNP 594 PG/ML (<450); PHOSPHORUS LEVEL 3.8 MG/DL (2.5-4.9); POTASSIUM SERUM 4.2 MEQ/L (3.5-5.1); SODIUM LEVEL 144 MEQ/L (136-145)
== END ==
LOC: M SFHCPLAZ 09:27
PROVIDERS: ATTEND Family Medicine
DX: I50.32 Chronic diastolic (congestive) heart failure (principal); M45.9 Ankylosing spondylitis of unspecified sites in spine
CPT/HCPCS: 36415; 80069; 83735; 83880; 85652; 86140; G0463

== ENCOUNTER → 2018-11-27 | Outpatient (CLI) | payer MEDICARE, MEDICAID ==
[~2018-11-27] VITALS: Ht 149.9 cm; Wt 77.3 kg
[2018-11-27 16:00] VITALS: BP 140/72
[2018-11-27] MEDS: ZOLEDRONIC ACID 5 MG in APPROPRIATE DILUENT 1 EA IV ONE (16:39)
[2018-11-27 17:09] VITALS: BP 136/70
== END ==
LOC: M INFU 15:56
PROVIDERS: ATTEND Family Medicine
DX: M85.80 Other specified disorders of bone density and structure, unspecified site (principal)
CPT/HCPCS: 96365; J3489

== ENCOUNTER → 2019-01-22 | Outpatient (REF) | payer MEDICARE, MEDICAID ==
[~2019-01-22] MED LIST changes: -BISO5TAB5 PO; +BISO5TAB9 PO; -GLIM4TAB PO; +GLIM4TAB3 PO
[2019-01-22 14:26] LABS: BASO # 0.1 10^3/uL (0.0-0.2); BASO % 0.5 % (0.0-1.0); EOS # 0.1 10^3/uL (0.0-0.5); EOS % 0.7 % (0.0-3.0); HEMATOCRIT 36.4 % (36.0-47.0); HEMOGLOBIN 11.4 g/dl (12.0-15.5); LYMPH # 2.8 10^3/uL (1.5-5.0); LYMPH % 21.6 % (24.0-44.0); MEAN CORPUSCULAR HEMOGLOBIN 28.7 pg (27.0-33.0); MEAN CORPUSCULAR HGB CONC 31.3 g/dl (32.0-36.5); MEAN CORPUSCULAR VOLUME 91.7 fl (80.0-96.0); MONO # 0.8 10^3/uL (0.0-0.8); MONO % 6.4 % (0.0-5.0); NEUTROPHILS # 8.9 10^3/uL (1.5-8.5); NEUTROPHILS % 70.1 % (36.0-66.0); PLATELET COUNT, AUTOMATED 288 10^3/uL (150-450); RED BLOOD COUNT 3.97 10^6/uL (4.00-5.40); WHITE BLOOD COUNT 12.8 10^3/uL (4.0-10.0)
[2019-01-22 14:43] LABS: ALBUMIN 2.9 GM/DL (3.2-5.2); C REACTIVE PROTEIN QUANTITATIV 2.46 MG/DL (0.00-0.30); CALCIUM LEVEL 8.8 MG/DL (8.8-10.2); CREATININE FOR GFR 1.04 MG/DL (0.55-1.30); GLOMERULAR FILTRATION RATE 54.3 (>32); PHOSPHORUS LEVEL 3.2 MG/DL (2.5-4.9); POTASSIUM SERUM 3.8 MEQ/L (3.5-5.1)
[2019-01-22 15:08] LABS: ERYTHROCYTE SEDIMENTATION RATE 62 mm/hr (0-30)
== END ==
LOC: M SFHCPLAZ 12:12
PROVIDERS: ATTEND Nurse Practitioner Family
DX: M45.9 Ankylosing spondylitis of unspecified sites in spine (principal); N39.0 Urinary tract infection, site not specified
CPT/HCPCS: 36415; 80069; 81001; 85025; 85652; 86140; 87088; 87186; G0463

== ENCOUNTER → 2019-01-22 | Outpatient (REF) | payer MEDICARE, MEDICAID ==
[2019-01-22 14:24] LABS: APPEARANCE, URINE CLOUDY (CLEAR); BILIRUBIN, URINE AUTO NEGATIVE (NEGATIVE); BLOOD, URINE BLOOD 1+ (NEGATIVE); COLOR, URINE RED (YELLOW); GLUCOSE, URINE (UA) AUTO NEGATIVE (NEGATIVE); KETONE, URINE AUTO NEGATIVE (NEGATIVE); LEUKOCYTE ESTERASE, URINE AUTO 3+ (NEGATIVE); MUCUS, URINE SMALL (NEGATIVE); NITRITE, URINE AUTO NEGATIVE (NEGATIVE); PROTEIN, URINE AUTO 1+ mg/dL (NEGATIVE); RBC, URINE AUTO 16 /HPF (0-3); SQUAMOUS EPITHELIAL CELL UR AU 4 /HPF (0-6); UROBILINOGEN, URINE AUTO 0.2 mg/dL (0.0-2.0); WBC, URINE AUTO TNTC /HPF (0-3)
[2019-01-22 14:26] LABS: BACTERIA, URINE AUTO 3+ (NEGATIVE)
== END ==
LOC: M SFHCPLAZ 14:09
PROVIDERS: ATTEND Nurse Practitioner Family
DX: N39.0 Urinary tract infection, site not specified (principal); M45.9 Ankylosing spondylitis of unspecified sites in spine

== ENCOUNTER → 2019-02-14 | Outpatient (REF) | payer MEDICARE, MEDICAID ==
[2019-02-14 12:29] LABS: BASO # 0.1 10^3/uL (0.0-0.2); BASO % 0.8 % (0.0-1.0); EOS # 0.2 10^3/uL (0.0-0.5); EOS % 2.1 % (0.0-3.0); HEMATOCRIT 35.9 % (36.0-47.0); HEMOGLOBIN 10.8 g/dl (12.0-15.5); LYMPH # 1.7 10^3/uL (1.5-5.0); LYMPH % 17.9 % (24.0-44.0); MEAN CORPUSCULAR HEMOGLOBIN 27.8 pg (27.0-33.0); MEAN CORPUSCULAR HGB CONC 30.1 g/dl (32.0-36.5); MEAN CORPUSCULAR VOLUME 92.3 fl (80.0-96.0); MONO # 0.3 10^3/uL (0.0-0.8); MONO % 3.3 % (0.0-5.0); NEUTROPHILS # 7.1 10^3/uL (1.5-8.5); NEUTROPHILS % 75.4 % (36.0-66.0); PLATELET COUNT, AUTOMATED 278 10^3/uL (150-450); RED BLOOD COUNT 3.89 10^6/uL (4.00-5.40); WHITE BLOOD COUNT 9.4 10^3/uL (4.0-10.0)
[2019-02-14 12:52] LABS: CREATININE FOR GFR 1.19 MG/DL (0.55-1.30)
[2019-02-14 12:53] LABS: BILIRUBIN,TOTAL 0.5 MG/DL (0.2-1.0); CALCIUM LEVEL 8.6 MG/DL (8.8-10.2); GLOMERULAR FILTRATION RATE 46.5 (>32); POTASSIUM SERUM 4.5 MEQ/L (3.5-5.1); TOTAL PROTEIN 6.6 GM/DL (6.4-8.2)
== END ==
LOC: M SFHCPLAZ 11:34
PROVIDERS: ATTEND Nurse Practitioner Family
DX: M45.9 Ankylosing spondylitis of unspecified sites in spine (principal)
CPT/HCPCS: 36415; 80053; 83880; 85025; G0463

== ENCOUNTER → 2019-03-24 | Outpatient (REF) | payer MEDICARE, MEDICAID ==
[2019-03-24 15:31] LABS: BASO # 0.1 10^3/uL (0.0-0.2); BASO % 0.6 % (0.0-1.0); EOS # 0.1 10^3/uL (0.0-0.5); EOS % 0.8 % (0.0-3.0); HEMATOCRIT 39.5 % (36.0-47.0); HEMOGLOBIN 11.5 g/dl (12.0-15.5); LYMPH # 1.7 10^3/uL (1.5-5.0); LYMPH % 13.9 % (24.0-44.0); MEAN CORPUSCULAR HEMOGLOBIN 28.6 pg (27.0-33.0); MEAN CORPUSCULAR HGB CONC 29.1 g/dl (32.0-36.5); MEAN CORPUSCULAR VOLUME 98.3 fl (80.0-96.0); MONO # 0.5 10^3/uL (0.0-0.8); MONO % 4.3 % (0.0-5.0); NEUTROPHILS # 9.9 10^3/uL (1.5-8.5); NEUTROPHILS % 79.4 % (36.0-66.0); PLATELET COUNT, AUTOMATED 286 10^3/uL (150-450); RED BLOOD COUNT 4.02 10^6/uL (4.00-5.40); WHITE BLOOD COUNT 12.5 10^3/uL (4.0-10.0)
[2019-03-24 15:40] LABS: ALBUMIN 3.6 GM/DL (3.2-5.2); BILIRUBIN,TOTAL 0.4 MG/DL (0.2-1.0); CALCIUM LEVEL 9.2 MG/DL (8.8-10.2); CREATININE FOR GFR 1.14 MG/DL (0.55-1.30); GLOMERULAR FILTRATION RATE 48.8 (>32); POTASSIUM SERUM 4.1 MEQ/L (3.5-5.1); TOTAL PROTEIN 7.4 GM/DL (6.4-8.2)
== END ==
LOC: M SFHCPLAZ 13:42
PROVIDERS: ATTEND Nurse Practitioner Family
DX: M45.9 Ankylosing spondylitis of unspecified sites in spine (principal)

== ENCOUNTER 2019-06-12 19:46 | Emergency (ER) | payer MEDICARE, MEDICAID ==
[~2019-06-12] VITALS: Ht 149.9 cm; Wt 77.2 kg
[~2019-06-12 19:46] MED LIST changes: +BISO5TAB14 PO; -BISO5TAB9 PO; -GLIM4TAB3 PO; +GLIM4TAB5 PO; -MECL12.575 PO; +MECL12.589 PO
[2019-06-12] MEDS ORDERED: NS 500 ML IV ONE (22:00)
[2019-06-12 22:19] LABS: BASO % 0.3 % (0.0-1.0); EOS % 0.2 % (0.0-3.0); HEMATOCRIT 38.9 % (36.0-47.0); HEMOGLOBIN 11.9 g/dl (12.0-15.5); LYMPH # 2.2 10^3/uL (1.5-5.0); LYMPH % 16.7 % (24.0-44.0); MEAN CORPUSCULAR HEMOGLOBIN 28.3 pg (27.0-33.0); MEAN CORPUSCULAR HGB CONC 30.6 g/dl (32.0-36.5); MEAN CORPUSCULAR VOLUME 92.4 fl (80.0-96.0); MONO # 0.3 10^3/uL (0.0-0.8); MONO % 2.4 % (0.0-5.0); NEUTROPHILS # 10.4 10^3/uL (1.5-8.5); NEUTROPHILS % 79.9 % (36.0-66.0); PLATELET COUNT, AUTOMATED 275 10^3/uL (150-450); RED BLOOD COUNT 4.21 10^6/uL (4.00-5.40)
--- NOTE | 2019-06-12 22:26 | REPVR ---
PROCEDURE INFORMATION: Exam: CT Head Without Contrast Exam date and time: 06/12/2019 10:13 PM Age: 78 years old Clinical indication: Altered mental status/memory loss; Confusion or disorientation; Additional info: CVA - nursing interventions must not delay CT TECHNIQUE: Imaging protocol: Computed tomography of the head without contrast. Radiation optimization: All CT scans at this facility use at least one of these dose optimization techniques: automated exposure control; mA and/or kV adjustment per patient size (includes targeted exams where dose is matched to clinical indication); or iterative reconstruction. Other technique: STROKE PROTOCOL was implemented. COMPARISON: CT Head without contrast 05/29/2015 6:11 PM FINDINGS: Brain: There is volume loss. There is white matter lucency consistent with chronic microvascular disease. There is an old right thalamic lacunar infarct. There are old right frontal and parietal cortical infarcts. These have occurred since the previous scan but do not appear acute. There is a small old right cerebellar infarct. No acute infarct is identified. There is no hemorrhage or extra-axial collection. There is no mass. Ventricles: Ventricular dilatation secondary to volume loss. Bones/joints: Unremarkable. No acute fracture. Sinuses: Visualized sinuses are unremarkable. No fluid levels. Mastoid air cells: Visualized mastoid air cells are well aerated. Soft tissues: Unremarkable. IMPRESSION: 1. There are multiple old infarcts. 2. No acute intracranial lesion or injury. ASSESSMENT: ASPECTS ([place] Stroke Program Early CT Score) 10 Electronically signed by: Dinesh Harper On 06/12/2019 22:26:16 PM
[2019-06-12 22:31] LABS: INR 1.01
[2019-06-12 22:32] LABS: PARTIAL THROMBOPLASTIN TIME 25.7 SECONDS (25.0-38.4)
[2019-06-12 22:54] LABS: ALBUMIN 3.5 GM/DL (3.2-5.2); ALT/SGPT 41 U/L (12-78); BILIRUBIN,DIRECT < 0.1 MG/DL (0.0-0.2); BILIRUBIN,TOTAL 0.2 MG/DL (0.2-1.0); BLOOD UREA NITROGEN 16 MG/DL (7-18); CALCIUM LEVEL 7.6 MG/DL (8.8-10.2); CARBON DIOXIDE LEVEL 24 MEQ/L (21-32); CHLORIDE LEVEL 111 MEQ/L (98-107); CK-MB VALUE MASS < 1.0 NG/ML (<3.6); CPK CREATINE PHOSPHOKINASE 84 U/L (26-192); CREATININE FOR GFR 1.08 MG/DL (0.55-1.30); GLUCOSE, FASTING 213 MG/DL (70-100); MB/CK RELATIVE INDEX 1.19 (< OR =4); POTASSIUM SERUM 3.7 MEQ/L (3.5-5.1); SODIUM LEVEL 145 MEQ/L (136-145); THYROID STIMULATING HORMONE 0.844 uIU/ML (0.358-3.740); TOTAL PROTEIN 7.1 GM/DL (6.4-8.2); TROPONIN I < 0.02 NG/ML (< 0.10)
[2019-06-13] MEDS ORDERED: KEPP1TAB2 PO (00:25)
[2019-06-13] MEDS ORDERED: levETIRAcetam 250MG TABLET (KEPPRA) PO ONE (00:30)
[2019-06-13 00:45] VITALS: BP 147/80
--- NOTE | 2019-06-13 05:40 | ECGEPIP ---
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
--- NOTE | 2019-06-13 08:34 | REP ---
Portable chest x-ray: Single AP view. History: CVA. Comparison chest x-ray: May 29, 2015. Findings: EKG monitoring electrodes overlie the chest. There is mild perihilar fibrosis on the right. Cardiomegaly is observed unchanged. Pulmonary vasculature is not increased. There are surgical clips in the soft tissues of the neck on the right side. Pleural angles are sharp. No significant bony abnormality is seen. Impression: Cardiomegaly. Right perihilar fibrosis. Otherwise no active disease. Electronically Signed by Nader Chandler MD 06/13/2019 08:26 A
== END 2019-06-13 00:44 | disposition home or self-care (01) ==
LOC: M ED 19:46
DX: R56.9 Unspecified convulsions (principal); R94.31 Abnormal electrocardiogram [ECG] [EKG]; I51.7 Cardiomegaly; J84.10 Pulmonary fibrosis, unspecified; I25.10 Atherosclerotic heart disease of native coronary artery without angina pectoris; E11.9 Type 2 diabetes mellitus without complications; K21.9 Gastro-esophageal reflux disease without esophagitis; M10.9 Gout, unspecified; N18.9 Chronic kidney disease, unspecified; M48.00 Spinal stenosis, site unspecified; J44.9 Chronic obstructive pulmonary disease, unspecified; Z88.1 Allergy status to other antibiotic agents; Z91.040 Latex allergy status; Z91.041 Radiographic dye allergy status; Z88.7 Allergy status to serum and vaccine; Z79.4 Long term (current) use of insulin; Z79.82 Long term (current) use of aspirin; Z79.899 Other long term (current) drug therapy

== ENCOUNTER → 2019-06-19 | Outpatient (REF) | payer MEDICARE, MEDICAID ==
[~2019-06-19] MED LIST changes: +KEPP1TAB2 PO
[2019-06-19 14:01] LABS: BASO # 0.1 10^3/uL (0.0-0.2); BASO % 0.5 % (0.0-1.0); EOS # 0.2 10^3/uL (0.0-0.5); EOS % 1.7 % (0.0-3.0); HEMATOCRIT 36.6 % (36.0-47.0); HEMOGLOBIN 11.1 g/dl (12.0-15.5); LYMPH # 1.6 10^3/uL (1.5-5.0); LYMPH % 13.1 % (24.0-44.0); MEAN CORPUSCULAR HEMOGLOBIN 28.6 pg (27.0-33.0); MEAN CORPUSCULAR HGB CONC 30.3 g/dl (32.0-36.5); MEAN CORPUSCULAR VOLUME 94.3 fl (80.0-96.0); MONO # 0.7 10^3/uL (0.0-0.8); MONO % 5.7 % (0.0-5.0); NEUTROPHILS # 9.4 10^3/uL (1.5-8.5); NEUTROPHILS % 78.3 % (36.0-66.0); PLATELET COUNT, AUTOMATED 291 10^3/uL (150-450); RED BLOOD COUNT 3.88 10^6/uL (4.00-5.40)
[2019-06-19 14:32] LABS: ALBUMIN 3.1 GM/DL (3.2-5.2); BILIRUBIN,TOTAL 0.4 MG/DL (0.2-1.0); C REACTIVE PROTEIN QUANTITATIV 12.5 MG/DL (0.00-0.30); CALCIUM LEVEL 7.9 MG/DL (8.8-10.2); FREE T4 1.43 NG/DL (0.76-1.46); GLOMERULAR FILTRATION RATE 56.8 (>32); MAGNESIUM LEVEL 1.2 MG/DL (1.8-2.4); POTASSIUM SERUM 4.6 MEQ/L (3.5-5.1); THYROID STIMULATING HORMONE 0.809 uIU/ML (0.358-3.740); TOTAL PROTEIN 6.7 GM/DL (6.4-8.2)
[2019-06-19 14:48] LABS: HEMOGLOBIN A1c 7.8 %
[2019-06-19 15:21] LABS: ERYTHROCYTE SEDIMENTATION RATE 59 mm/hr (0-30)
== END ==
LOC: M SFHCPLAZ 11:38
PROVIDERS: ATTEND Family Medicine
DX: G40.909 Epilepsy, unspecified, not intractable, without status epilepticus (principal); M45.9 Ankylosing spondylitis of unspecified sites in spine; E78.5 Hyperlipidemia, unspecified; E11.9 Type 2 diabetes mellitus without complications; I25.10 Atherosclerotic heart disease of native coronary artery without angina pectoris; I50.32 Chronic diastolic (congestive) heart failure
CPT/HCPCS: 36415; 80053; 80180; 83036; 83735; 83880; 84439; 84443; 85025; 85652; 86140; G0463

== ENCOUNTER → 2019-06-28 | Outpatient (CLI) | payer MEDICARE, MEDICAID ==
--- NOTE | 2019-06-28 13:08 | REPVR ---
PROCEDURE INFORMATION: Exam: MR Head Without Contrast Exam date and time: 06/28/2019 12:18 PM Age: 78 years old Clinical indication: Condition or disease; Cerebrovascular disease; Other: Cerebral vascular accident TECHNIQUE: Imaging protocol: MR of the head without contrast. COMPARISON: MRI-Brain without Contrast 05/30/2015 1:28 PM FINDINGS: Brain: There are extensive regions of increased T2/FLAIR signal in the periventricular and subcortical white matter related to the sequela prior small vessel ischemia. There is a focal region of encephalomalacia involving the posterior right frontal lobe including the precentral gyrus related to a chronic infarction. There is a chronic right occipital infarct as well. There are foci of increased T2 signal in the basal ganglia related to chronic lacunar infarctions. There are small stable right cerebellar infarcts. There is no region of restricted diffusion. Ventricles: The ventricles and CSF spaces are proportionately enlarged. Bones/joints: Unremarkable. Soft tissues: Unremarkable. Sinuses: There is bony thickening of the right maxillary sinus consistent with chronic changes. No acute sinusitis. Mastoid air cells: Normal as visualized. No mastoid effusion. Orbits: There are postoperative changes from prior cataract surgery. IMPRESSION: 1. Sequela of prior ischemic disease. 2. No acute intracranial abnormality. Electronically signed by: Rashad Diaz On 06/28/2019 13:08:32 PM
== END ==
LOC: M RAD 10:53
PROVIDERS: ATTEND Family Medicine
DX: I69.30 Unspecified sequelae of cerebral infarction (principal)

== ENCOUNTER → 2019-06-30 | Outpatient (REF) | payer MEDICARE, MEDICAID ==
[2019-06-30 14:04] LABS: ALBUMIN 3.4 GM/DL (3.2-5.2); ALT/SGPT 22 U/L (12-78); BILIRUBIN,TOTAL 0.3 MG/DL (0.2-1.0); BLOOD UREA NITROGEN 21 MG/DL (7-18); C REACTIVE PROTEIN QUANTITATIV < 0.30 MG/DL (0.00-0.30); CALCIUM LEVEL 8.8 MG/DL (8.8-10.2); CARBON DIOXIDE LEVEL 30 MEQ/L (21-32); CHLORIDE LEVEL 109 MEQ/L (98-107); CREATININE FOR GFR 1.03 MG/DL (0.55-1.30); GLOMERULAR FILTRATION RATE 54.9 (>32); GLUCOSE, FASTING 145 MG/DL (70-100); MAGNESIUM LEVEL 1.3 MG/DL (1.8-2.4); NT-PRO BNP 655 PG/ML (<450); POTASSIUM SERUM 4.2 MEQ/L (3.5-5.1); SODIUM LEVEL 143 MEQ/L (136-145); TOTAL PROTEIN 6.8 GM/DL (6.4-8.2); URIC ACID 3.1 MG/DL (2.6-6.0)
== END ==
LOC: M SFHCPLAZ 11:11
PROVIDERS: ATTEND Family Medicine
DX: G40.909 Epilepsy, unspecified, not intractable, without status epilepticus (principal); I50.32 Chronic diastolic (congestive) heart failure; M45.9 Ankylosing spondylitis of unspecified sites in spine; M10.9 Gout, unspecified
CPT/HCPCS: 36415; 80053; 80180; 83735; 83880; 84550; 85652; 86140; G0463

== ENCOUNTER 2019-07-08 11:00 | Emergency (ER) | payer MEDICAID, MEDICARE ==
[~2019-07-08] VITALS: Ht 144.8 cm; Wt 78.8 kg
[2019-07-08] MEDS ORDERED: TETRACAINE 0.5% OPHTH SOLN 4ML OU ONE (11:45)
[2019-07-08] MEDS ORDERED: PRED25TA PO (12:10)
[2019-07-08] MEDS ORDERED: METH2.5T48 PO (12:10)
[2019-07-08] MEDS ORDERED: LEVE500T5 PO (12:10)
[2019-07-08] MEDS ORDERED: PRED5TA PO (12:10)
[2019-07-08] MEDS ORDERED: FURO20TA2 PO (12:10)
--- NOTE | 2019-07-08 12:11 | REP ---
CT BRAIN WITHOUT CONTRAST: HISTORY: Visual changes. Comparison head CT study is from June 12, 2019. Comparison MRI study of the brain is from June 28, 2019. CT FINDINGS: Digital preliminary spring bender radiograph is unremarkable. The patient is edentulous. Bone window settings demonstrate vascular calcification in the distal vertebral and distal carotid arteries as before. The visualized paranasal sinuses are clear. No bony calvarial defect is seen. There is a small dermal nodule in the right frontal scalp. No intraorbital abnormality is seen. There are is physiologic calcification in the basal ganglia on the left. Moderate small vessel changes are seen. Mild generalized atrophy is noted. There is encephalomalacia consistent with an old infarct in the right occipital lobe and another area in the right posterior frontal lobe unchanged. A lacunar infarct is seen in the periventricular white matter of the right frontal lobe inferiorly. There is an old lacunar infarct in the right inferior cerebellar hemisphere. This is also unchanged. There is no evidence of intracranial hemorrhage, new infarction, mass or midline shift. No extra-axial fluid collection is seen. IMPRESSION: Findings consistent with old right cerebellar, right occipital and right posterior frontal lobe infarctions. Small vessel changes. Vascular calcification and mild diffuse atrophy. No acute change from prior studies. Electronically Signed by Nader Chandler MD 07/08/2019 01:33 P
--- NOTE | 2019-07-08 12:12 | REP ---
REASON FOR EXAM: Stroke like symptoms. COMPARISON EXAM: 06/12/2019. The technique utilized in obtaining the radiograph has magnified the cardiac silhouette and accentuated the interstitial markings. There is cardiomegaly accentuated by technique status quo. There is no change in the lung you. There are no acute patchy parenchymal opacities or pleural effusions. There is no change in the osseous structures. IMPRESSION: Cardiomegaly without evidence of acute cardiopulmonary disease. Electronically Signed by Rudi Dubon DO 07/08/2019 01:42 P
[2019-07-08 12:16] LABS: BASO # 0.1 10^3/uL (0.0-0.2); BASO % 0.6 % (0.0-1.0); EOS # 0.2 10^3/uL (0.0-0.5); EOS % 1.3 % (0.0-3.0); HEMATOCRIT 37.8 % (36.0-47.0); HEMOGLOBIN 11.4 g/dl (12.0-15.5); LYMPH # 3.1 10^3/uL (1.5-5.0); LYMPH % 25.8 % (24.0-44.0); MEAN CORPUSCULAR HEMOGLOBIN 28.6 pg (27.0-33.0); MEAN CORPUSCULAR HGB CONC 30.2 g/dl (32.0-36.5); MONO # 0.7 10^3/uL (0.0-0.8); MONO % 6.1 % (0.0-5.0); NEUTROPHILS # 7.8 10^3/uL (1.5-8.5); NEUTROPHILS % 65.6 % (36.0-66.0); PLATELET COUNT, AUTOMATED 278 10^3/uL (150-450); RED BLOOD COUNT 3.98 10^6/uL (4.00-5.40); WHITE BLOOD COUNT 11.9 10^3/uL (4.0-10.0)
[2019-07-08 12:27] LABS: INR 0.98; PROTHROMBIN TIME 12.6 SECONDS (11.8-14.0)
[2019-07-08 12:28] LABS: PARTIAL THROMBOPLASTIN TIME 23.5 SECONDS (25.0-38.4)
[2019-07-08 12:35] LABS: ALBUMIN 3.3 GM/DL (3.2-5.2); ALT/SGPT 29 U/L (12-78); BILIRUBIN,DIRECT 0.1 MG/DL (0.0-0.2); BILIRUBIN,TOTAL 0.3 MG/DL (0.2-1.0); CK-MB VALUE MASS < 1.0 NG/ML (<3.6); CPK CREATINE PHOSPHOKINASE 48 U/L (26-192); MB/CK RELATIVE INDEX 2.08 (< OR =4); TOTAL PROTEIN 7.4 GM/DL (6.4-8.2); TROPONIN I < 0.02 NG/ML (< 0.10)
[2019-07-08 15:00] VITALS: BP 144/55
[2019-07-08] MEDS ORDERED: LOSA25TA14 PO (15:35)
--- NOTE | 2019-07-09 01:08 | ECGEPIP ---
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
== END 2019-07-08 15:46 | disposition home or self-care (01) ==
LOC: M ED 11:00
DX: I10 Essential (primary) hypertension (principal); I44.0 Atrioventricular block, first degree; I51.7 Cardiomegaly; E11.9 Type 2 diabetes mellitus without complications; Z86.73 Personal history of transient ischemic attack (TIA), and cerebral infarction without residual deficits; N18.3 Chronic kidney disease, stage 3 (moderate); J45.909 Unspecified asthma, uncomplicated; G47.33 Obstructive sleep apnea (adult) (pediatric); K21.9 Gastro-esophageal reflux disease without esophagitis; Z79.82 Long term (current) use of aspirin; Z79.84 Long term (current) use of oral hypoglycemic drugs; Z79.899 Other long term (current) drug therapy; Z91.040 Latex allergy status; Z88.7 Allergy status to serum and vaccine; Z91.041 Radiographic dye allergy status; Z88.1 Allergy status to other antibiotic agents; Z88.8 Allergy status to other drugs, medicaments and biological substances

== ENCOUNTER → 2019-08-12 | Outpatient (REF) | payer MEDICARE, MEDICAID ==
[~2019-08-12] MED LIST changes: +FURO20TA2 PO; +LEVE500T5 PO; +LOSA25TA14 PO; +PRED25TA PO; +PRED5TA PO
[2019-08-12 19:01] LABS: BASO # 0.1 10^3/uL (0.0-0.2); BASO % 0.6 % (0.0-1.0); EOS % 0.4 % (0.0-3.0); HEMATOCRIT 39.4 % (36.0-47.0); HEMOGLOBIN 11.6 g/dl (12.0-15.5); LYMPH # 1.4 10^3/uL (1.5-5.0); LYMPH % 13.3 % (24.0-44.0); MEAN CORPUSCULAR HEMOGLOBIN 28.4 pg (27.0-33.0); MEAN CORPUSCULAR HGB CONC 29.4 g/dl (32.0-36.5); MEAN CORPUSCULAR VOLUME 96.6 fl (80.0-96.0); MONO # 0.5 10^3/uL (0.0-0.8); MONO % 4.6 % (0.0-5.0); NEUTROPHILS # 8.7 10^3/uL (1.5-8.5); NEUTROPHILS % 80.4 % (36.0-66.0); PLATELET COUNT, AUTOMATED 234 10^3/uL (150-450); RED BLOOD COUNT 4.08 10^6/uL (4.00-5.40); WHITE BLOOD COUNT 10.8 10^3/uL (4.0-10.0)
[2019-08-12 19:18] LABS: HEMOGLOBIN A1c 7.8 %
[2019-08-12 19:31] LABS: ALBUMIN 3.6 GM/DL (3.2-5.2); ALT/SGPT 52 U/L (12-78); BILIRUBIN,TOTAL 0.3 MG/DL (0.2-1.0); BLOOD UREA NITROGEN 23 MG/DL (7-18); C REACTIVE PROTEIN QUANTITATIV < 0.30 MG/DL (0.00-0.30); CALCIUM LEVEL 9.4 MG/DL (8.8-10.2); CARBON DIOXIDE LEVEL 30 MEQ/L (21-32); CHLORIDE LEVEL 108 MEQ/L (98-107); CREATININE FOR GFR 1.12 MG/DL (0.55-1.30); GLOMERULAR FILTRATION RATE 49.7 (>32); GLUCOSE, FASTING 116 MG/DL (70-100); MAGNESIUM LEVEL 1.8 MG/DL (1.8-2.4); NT-PRO BNP 601 PG/ML (<450); POTASSIUM SERUM 4.5 MEQ/L (3.5-5.1); SODIUM LEVEL 144 MEQ/L (136-145); TOTAL PROTEIN 7.2 GM/DL (6.4-8.2)
== END ==
LOC: M SFHCPLAZ 15:39
PROVIDERS: ATTEND Family Medicine
DX: I50.32 Chronic diastolic (congestive) heart failure (principal); N18.3 Chronic kidney disease, stage 3 (moderate); M45.9 Ankylosing spondylitis of unspecified sites in spine; E11.9 Type 2 diabetes mellitus without complications; G40.909 Epilepsy, unspecified, not intractable, without status epilepticus
CPT/HCPCS: 36415; 80053; 80180; 83036; 83735; 83880; 85025; 85046; 86140; G0463

== ENCOUNTER 2019-12-24 13:15 | Outpatient (CLI) | payer MEDICARE, MEDICAID ==
[2019-12-24 13:20] VITALS: BP 149/79
[2019-12-24] MEDS ORDERED: ZOLEDRONIC ACID 5 MG 100ML IVBAG (RECLAST)(J3489 PER 1MG) As Ordered ONE (13:23)
[2019-12-24] MEDS ORDERED: ZOLEDRONIC ACID 5 MG in IV 1 EA IV ONE (13:30)
[2019-12-24 14:15] VITALS: BP 128/72
== END 2019-12-24 14:15 | disposition home or self-care (01) ==
LOC: M INFU 13:15
PROVIDERS: ATTEND Family Medicine
DX: M85.80 Other specified disorders of bone density and structure, unspecified site (principal); Z88.8 Allergy status to other drugs, medicaments and biological substances; Z88.7 Allergy status to serum and vaccine; Z91.040 Latex allergy status; Z91.041 Radiographic dye allergy status
CPT/HCPCS: 96365; J3489

== ENCOUNTER → 2020-02-06 | Outpatient (CLI) | payer MEDICARE, MEDICAID ==
--- NOTE | 2020-02-06 15:00 | REPPI ---
INDICATION: J45.20 MILD INTERMITTENT ASTHMA WITHOUT COMPLICATION. COMPARISON: July 08, 2019. TECHNIQUE: Two views.. FINDINGS: The lungs are well inflated. No infiltrate is seen. Pleural angles are sharp. There is moderate cardiac enlargement again noted. Pulmonary vasculature is cephalized. No pleural effusion or pulmonary edema seen. The thoracic aorta is calcific and somewhat tortuous. There are mild degenerative changes in the thoracic spine. n IMPRESSION: Moderate cardiac enlargement. Pulmonary vascular cephalization. No infiltrate, effusion, or edema seen. <Electronically signed by Larry Chandler > 02/06/20 1446
== END ==
LOC: M PLAIMG 12:02
PROVIDERS: ATTEND Family Medicine
DX: J45.20 Mild intermittent asthma, uncomplicated (principal); M51.34 Other intervertebral disc degeneration, thoracic region; I50.32 Chronic diastolic (congestive) heart failure; I11.0 Hypertensive heart disease with heart failure
CPT/HCPCS: 36415; 71046; 80053; 83735; 83880; 84484; 85025; 86140; G0463

== ENCOUNTER → 2020-02-06 | Outpatient (REF) | payer MEDICARE, MEDICAID ==
[2020-02-06 13:38] LABS: BASO # 0.1 10^3/uL (0.0-0.2); BASO % 0.4 % (0.0-1.0); EOS % 0.1 % (0.0-3.0); HEMATOCRIT 38.8 % (36.0-47.0); HEMOGLOBIN 11.9 g/dl (12.0-15.5); LYMPH # 1.7 10^3/uL (1.5-5.0); LYMPH % 9.3 % (24.0-44.0); MEAN CORPUSCULAR HEMOGLOBIN 29.1 pg (27.0-33.0); MEAN CORPUSCULAR HGB CONC 30.7 g/dl (32.0-36.5); MEAN CORPUSCULAR VOLUME 94.9 fl (80.0-96.0); MONO # 0.9 10^3/uL (0.0-0.8); NEUTROPHILS # 15.2 10^3/uL (1.5-8.5); NEUTROPHILS % 83.8 % (36.0-66.0); PLATELET COUNT, AUTOMATED 335 10^3/uL (150-450); RED BLOOD COUNT 4.09 10^6/uL (4.00-5.40); WHITE BLOOD COUNT 18.1 10^3/uL (4.0-10.0)
[2020-02-06 14:28] LABS: ALBUMIN 3.1 GM/DL (3.2-5.2); BILIRUBIN,TOTAL 0.3 MG/DL (0.2-1.0); C REACTIVE PROTEIN QUANTITATIV 0.93 MG/DL (0.00-0.30); CALCIUM LEVEL 9.3 MG/DL (8.8-10.2); CREATININE FOR GFR 1.3 MG/DL (0.55-1.30); GLOMERULAR FILTRATION RATE 41.9 (>32); MAGNESIUM LEVEL 1.2 MG/DL (1.8-2.4); POTASSIUM SERUM 4.6 MEQ/L (3.5-5.1); TOTAL PROTEIN 7.1 GM/DL (6.4-8.2); TROPONIN I 0.02 NG/ML (< 0.10)
== END ==
LOC: M SFHCPLAZ 12:02
PROVIDERS: ATTEND Family Medicine
DX: I50.32 Chronic diastolic (congestive) heart failure (principal); I11.0 Hypertensive heart disease with heart failure; J45.20 Mild intermittent asthma, uncomplicated

== ENCOUNTER → 2020-02-10 | Outpatient (REF) | payer MEDICARE, MEDICAID ==
[2020-02-10 14:02] LABS: BASO # 0.1 10^3/uL (0.0-0.2); BASO % 0.9 % (0.0-1.0); EOS # 0.1 10^3/uL (0.0-0.5); EOS % 0.4 % (0.0-3.0); HEMATOCRIT 38.4 % (36.0-47.0); HEMOGLOBIN 11.5 g/dl (12.0-15.5); LYMPH # 2.1 10^3/uL (1.5-5.0); LYMPH % 14.4 % (24.0-44.0); MEAN CORPUSCULAR HEMOGLOBIN 28.3 pg (27.0-33.0); MEAN CORPUSCULAR HGB CONC 29.9 g/dl (32.0-36.5); MEAN CORPUSCULAR VOLUME 94.6 fl (80.0-96.0); MONO # 0.9 10^3/uL (0.0-0.8); MONO % 6.2 % (0.0-5.0); NEUTROPHILS % 75.8 % (36.0-66.0); PLATELET COUNT, AUTOMATED 306 10^3/uL (150-450); RED BLOOD COUNT 4.06 10^6/uL (4.00-5.40); WHITE BLOOD COUNT 14.5 10^3/uL (4.0-10.0)
[2020-02-10 14:33] LABS: CALCIUM LEVEL 10.1 MG/DL (8.8-10.2); CREATININE FOR GFR 1.45 MG/DL (0.55-1.30); GLOMERULAR FILTRATION RATE 36.9 (>32); PHOSPHORUS LEVEL 3.9 MG/DL (2.5-4.9); POTASSIUM SERUM 4.3 MEQ/L (3.5-5.1)
== END ==
LOC: M SFHCPLAZ 11:37
PROVIDERS: ATTEND Nurse Practitioner Family
DX: I50.32 Chronic diastolic (congestive) heart failure (principal)
CPT/HCPCS: 36415; 80069; 83735; 83880; 85025; G0463

== ENCOUNTER 2020-04-06 11:34 | Inpatient (IN) | payer MEDICARE, MEDICAID ==
[~2020-04-06] VITALS: Ht 149.9 cm; Wt 77.6 kg
[~2020-04-06 11:34] MED LIST changes: +ASPIRIN 81 MG ENTERIC TAB PO SCH; +CLOPIDOGREL 75 MG TAB PO SCH; -MECL12.589 PO; +MECL12.590 PO
[2020-04-06] MEDS ORDERED: NS 1,000 ML IV SCH (11:39)
[2020-04-06 11:55] LABS: VENOUS HCO3 17.2 MEQ/L (23.0-27.0); VENOUS O2 SATURATION 81.7 % (60.0-80.0); VENOUS PARTIAL PRESSURE CO2 38.1 mmHg (38.0-50.0); VENOUS PARTIAL PRESSURE O2 49.3 mmHg (30.0-50.0); VENOUS PH 7.272 UNITS (7.330-7.430); VENOUS TOTAL CO2 18.4 MEQ/L (24.0-28.0)
[2020-04-06 11:58] LABS: BASO % 0.1 % (0.0-1.0); EOS % 0.1 % (0.0-3.0); HEMATOCRIT 33.4 % (36.0-47.0); HEMOGLOBIN 10.1 g/dl (12.0-15.5); LYMPH # 0.7 10^3/uL (1.5-5.0); LYMPH % 4.9 % (24.0-44.0); MEAN CORPUSCULAR HEMOGLOBIN 28.1 pg (27.0-33.0); MEAN CORPUSCULAR HGB CONC 30.2 g/dl (32.0-36.5); MEAN CORPUSCULAR VOLUME 92.8 fl (80.0-96.0); MONO # 0.5 10^3/uL (0.0-0.8); MONO % 3.9 % (0.0-5.0); NEUTROPHILS # 12.3 10^3/uL (1.5-8.5); NEUTROPHILS % 89.8 % (36.0-66.0); PLATELET COUNT, AUTOMATED 238 10^3/uL (150-450); WHITE BLOOD COUNT 13.7 10^3/uL (4.0-10.0)
[2020-04-06] MEDS ORDERED: ACETAMINOPHEN 500 MG TAB PO ONE (12:00)
[2020-04-06 12:28] LABS: ALBUMIN 2.4 GM/DL (3.2-5.2); BILIRUBIN,DIRECT 0.1 MG/DL (0.0-0.2); BILIRUBIN,TOTAL 0.3 MG/DL (0.2-1.0); CALCIUM LEVEL 9.3 MG/DL (8.8-10.2); CK-MB VALUE MASS 2.2 NG/ML (<3.6); CREATININE FOR GFR 1.37 MG/DL (0.55-1.30); GLOMERULAR FILTRATION RATE 39.4 (>32); MB/CK RELATIVE INDEX 6.67 (< OR =4); POTASSIUM SERUM 4.5 MEQ/L (3.5-5.1); TOTAL PROTEIN 6.4 GM/DL (6.4-8.2); TROPONIN I 0.08 NG/ML (< 0.10)
[2020-04-06 12:36] LABS: INR 1.07; PROTHROMBIN TIME 14.1 SECONDS (12.5-14.3)
[2020-04-06] MEDS ORDERED: GLIM4TAB5 PO (12:45)
[2020-04-06 12:46] LABS: RSV AMPLIFICATION NEGATIVE (NEGATIVE)
[2020-04-06] MEDS ORDERED: CLOP75TA2 PO (13:01)
[2020-04-06] MEDS ORDERED: IRBE75TA4 PO (13:01)
[2020-04-06] MEDS ORDERED: D 50CAP2 PO (13:01)
[2020-04-06] MEDS ORDERED: POTA20TA6 PO (13:01)
[2020-04-06] MEDS ORDERED: METF-838 PO (13:01)
--- NOTE | 2020-04-06 13:09 | REP ---
INDICATION: SEPSIS/SHOCK COMPARISON: 02/06/2020 TECHNIQUE: Portable AP view of the chest FINDINGS: The mediastinum and cardiac silhouette are stable and within normal limits for portable technique. The lung you cannot exclude mild pulmonary vascular congestion. No focal consolidation, effusion, or pneumothorax. Skeletal structures are intact and stable. IMPRESSION: Cannot exclude mild chronic pulmonary vascular congestion. No focal consolidation or effusion. <Electronically signed by Leif Sanz > 04/06/20 [id number]
[2020-04-06 13:17] LABS: APPEARANCE, URINE CLOUDY (CLEAR); BACTERIA, URINE AUTO 2+ (NEGATIVE); BILIRUBIN, URINE AUTO NEGATIVE (NEGATIVE); BLOOD, URINE BLOOD 1+ (NEGATIVE); COLOR, URINE YELLOW (YELLOW); GLUCOSE, URINE (UA) AUTO 1+ mg/dL (NEGATIVE); KETONE, URINE AUTO NEGATIVE (NEGATIVE); LEUKOCYTE ESTERASE, URINE AUTO 3+ (NEGATIVE); NITRITE, URINE AUTO NEGATIVE (NEGATIVE); PROTEIN, URINE AUTO 2+ mg/dL (NEGATIVE); RBC, URINE AUTO 11 /HPF (0-3); SPECIFIC GRAVITY URINE AUTO 1.013 (1.002-1.035); SQUAMOUS EPITHELIAL CELL UR AU 0 /HPF (0-6); UROBILINOGEN, URINE AUTO 0.2 mg/dL (0.0-2.0); WBC, URINE AUTO 104 /HPF (0-3)
--- NOTE | 2020-04-06 13:18 | ECGEPIP ---
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
[2020-04-06] MEDS ORDERED: DIGOXIN INJ 0.5 MG/2 ML AMP (J1160) IV STA ×3 (13:36→16:12)
[2020-04-06] MEDS ORDERED: NS 1,000 ML IV ONE ×3 (13:45)
[2020-04-06] MEDS ORDERED: cefTRIAXone SOD 2 GM in D5W MINI-BAG PLUS 50 ML IV ONE (13:45)
[2020-04-06] MEDS ORDERED: med rec comment (14:11)
--- NOTE | 2020-04-06 14:14 | REP ---
INDICATION: pyelo ?stone COMPARISON: comparison CT study May 152015.. TECHNIQUE: Helical scanning is acquired in 4 mm axial images were reformatted. Coronal and sagittal MPR images were generated and reviewed. FINDINGS: Preliminary digital tassel clipper radiograph is unremarkable. The lung bases show linear fibrosis and subpleural fibrosis but are otherwise clear. Vascular calcification is noted. The liver and the spleen are normal in size homogeneous in texture. No adrenal abnormality is observed. No pancreatic abnormality is seen. There is a descending duodenal diverticulum. There is a 5 mm intrarenal calculus in the upper pole the right kidney. Vascular calcification is noted in both kidneys. A 2nd smaller calculus is suspected in the midpole are level of the right kidney. No hydronephrosis is seen. There is some perinephric stranding in the perinephric fat at the lower pole of the left kidney which may be a manifestation of pyelonephritis. No hydronephrosis is seen. No ureteral calculus is observed. There is a small phlebolith in the left gonadal vein. No bladder calculus is seen. No right-sided hydronephrosis noted. A normal appendix is observed in the right lower quadrant. There is sigmoid colon diverticulosis without CT evidence of diverticulitis. No abdominal wall defect is seen. No obstructive gastrointestinal lesion is seen. Bone window settings show no bony destructive lesion. IMPRESSION: There is perinephric stranding adjacent to the lower pole of the left kidney which may be a manifestation of pyelonephritis if clinically consistent. There is no evidence of hydronephrosis or left-sided obstructive uropathy. There are 2 intrarenal calculi in the right kidney. No right-sided hydronephrosis. <Electronically signed by Larry Chandler > 04/06/20 0884
[2020-04-06] MEDS: NS 1,000 ML IV SCH (14:45)
[2020-04-06 15:17] LABS: MAGNESIUM LEVEL 1.4 MG/DL (1.8-2.4)
[2020-04-06] MEDS ORDERED: HEPARIN DRIP 25,000 UNITS in IV 1 EA IV SCH (15:44)
[2020-04-06] MEDS ORDERED: HEPARIN SOD (PORCINE) 5000UNITS/ML 1ML VIAL/SYRINGE IV ONE (15:45)
[2020-04-06] MEDS ORDERED: HEPARIN SOD (PORCINE) 5000UNITS/ML 1ML VIAL/SYRINGE IV PRN (15:45)
[2020-04-06] MEDS ORDERED: METOPROLOL TART 25 MG TABLET PO ONE (16:15)
[2020-04-06 16:40] LABS: PARTIAL THROMBOPLASTIN TIME 23.5 SECONDS (24.2-38.5)
[2020-04-06 17:00] VITALS: BP 148/70
--- NOTE | 2020-04-06 17:36 | HPEPDOC ---
General Date of Admission Apr 06, 2020 at 14:35 Date of Service: Apr 06, 2020 Chief Complaint The patient is a 79-year-old female admitted with a reason for visit of Afib With Rapid Ventricular Response, Pyelonephrit. Source: Patient History of Present Illness Ms. Cuenca is an 79-year-old female with ankylosing spondylitis on methotrexate, hypertension, and diabetes mellitus was a who presents with malaise, cough, palpitations, and lower urinary tract symptoms. Since February, she has not been feeling well. She saw her PCP on February 12 for urgent care follow-up for pneumonia. At that time she also reported palpitations. She tells me that she's been having palpitations intermittently for a long time but could not give me a range. She's never been diagnosed with atrial fibrillation before. This past week her palpitations and lightheadedness had gotten worse so she came into the ED. While in the ED, her temperature peaked at 103 deg F. Heart rate ranged from 170s to 200s and SBP was low in the 70s. She was found to have pyelonephritis of left kidney seen on CT abd/pelvis. UA also suggestive of infection. She was given Rocephin and 3L of fluid. Blood pressure responded to fluid, but heart rate was unchanged. She was given 0.25mg of IV Digoxin which did not help. Cardiology was consulted. Recommended given another 0.25mg IV to see how she would respond. She will be admitted for sepsis 2/2 left pyelonephritis and atrial fibrillation with RVR Home Medications Scheduled Allopurinol (Zyloprim) 300 Mg Tab, 300 MG PO DAILY, (Reported) Aspirin (Aspirin EC) 81 Mg Tab, 81 MG PO DAILY, (Reported) Atorvastatin Calcium (Atorvastatin Calcium) 40 Mg Tab, 40 MG PO DAILY, (Reported) Bisoprolol Fumarate (Bisoprolol Fumarate) 5 Mg Tab, 5 MG PO DAILY, (Reported) Calcium Carbonate (Tums) 500 Mg Chw, 1,000 MG PO TID, (Reported) Cholecalciferol (Vitamin D3) (Vitamin D3) 125 Mcg Capsule, 125 MCG PO DAILY, (Reported) Clopidogrel Bisulfate (Clopidogrel) 75 Mg Tablet, 75 MG PO DAILY, (Reported) Esomeprazole Magnesium (Esomeprazole Magnesium) 40 Mg Cap, 40 MG PO BID, (Reported) Furosemide (Furosemide) 20 Mg Tablet, 20 MG PO DAILY, (Reported) Glimepiride (Glimepiride) 4 Mg Tab, 4 MG PO QAM, (Reported) Glimepiride (Glimepiride) 4 Mg Tablet, 2 MG PO QPM, (Reported) Irbesartan (Irbesartan) 75 Mg Tablet, 75 MG PO BID, (Reported) Levetiracetam (Keppra) 750 Mg Tablet, 1 TAB PO BID Linagliptin (Tradjenta) 5 Mg Tab, 5 MG PO DAILY, (Reported) Magnesium Chloride (Slow-Mag) 1 Tab Tab, 192 MG PO TID, (Reported) Meclizine HCl (Meclizine HCl) 12.5 Mg Tab, 12.5 MG PO BID, (Reported) Metformin HCl (Metformin HCl ER) 500 Mg Tab.er.24h, 500 MG PO QPM, (Reported) Methotrexate Sodium (Methotrexate) 2.5 Mg Tablet, 7.5 MG PO QWEEK, (Reported) Potassium Chloride (Potassium Chloride) 20 Meq Tab.er.prt, 20 MEQ PO DAILY, (Reported) levETIRAcetam (levETIRAcetam) 500 Mg Tablet, 500 MG PO QHS, (Reported) Scheduled PRN Ondansetron HCl (Zofran) 4 Mg Tab, 4 MG PO Q6H PRN for NAUSEA, (Reported) Miscellaneous Medications [med rec comment] , (Reported) AWAITING CALL BACK FROM '[facility] REGARDING KEPPRA DOSE Allergies Coded Allergies: Influenza Virus Vaccines (Verified Allergy, Intermediate, LARGE LOCALIZED REACTION, 11/27/18) Contrast Media (Unverified Allergy, Unknown, 02/12/09) latex (Verified Allergy, Unknown, 11/27/18) amlodipine (Verified Adverse Reaction, Mild, HEADACHE, 11/27/18) cefdinir (Verified Adverse Reaction, Mild, DIARRHEA, 11/27/18) moxifloxacin (Verified Adverse Reaction, Mild, 11/27/18) Past Medical History Medical History 1. Ankylosing spondylitis, HLA-B27 positive 2. Iron deficiency anemia 3. Hypertension 4. Diabetes mellitus type 2 5. CAD status post 1 stent in [place] 6. Osteopenia 7. Lumbar degenerative disc disease 8. Bilateral carpal tunnel 9. GERD 10. Insomnia 11. Allergic rhinitis 12. Chronic kidney disease 13. Asthma 14. Vitamin D deficiency 15. Obesity 16. DUKE 17. Gout Surgical History 1. D&C 2. 3. Cataracts 4. Hysterectomy 5. Right common external/internal CEA 6. Right cataract extraction 7. Right carotid stent Family History Father: No known medical history, father was adopted Mother: Diabetes mellitus and from a DE at age 62 Social History * Smoker: Denies Alcohol: Denies Drugs: denies A-FIB/CHADSVASC A-FIB History Current/History of A-Fib/PAF?: Yes Current PO Anticoag Therapy: No Age/Risk Factor Scoring CHADSVASC: CHADSVASC Response (Comments) Value Age Risk Factor Age >/= 75 years old 2 Gender Risk Factor Female 1 Hx of CHF No 0 Hx of HTN Yes 1 Hx of Stroke/TIA/or VTE Yes 2 Hx of Diabetes Yes 1 Hx of Vascular Disease Yes 1 Total 8 Treatment Treatment ordered: Heparin IV bridge Therapy Review of Systems Constitutional: Reports: Fever Eyes: Reports: Other (blurry vision started couple days ago when she was lightheaded) ENT: Denies: Sore Throat Skin: Denies: Rash Pulmonary: Reports: Dyspnea, Cough (produced small amounts of clear sputum) Cardiovascular: Reports: Palpitations (and treatment); Denies: Chest Pain Gastrointestinal: Reports: Diarrhea (about 2-3 times a day the day); Denies: Abdominal Pain Genitourinary: Reports: Frequency; Denies: Dysuria Hematologic: Reports: Bruising Endocrine: Reports: Polydipsia; Denies: Polyphagia Physical Examination General Exam: Positive: Cooperative, Mild Distress, Other (lethargic) Eye Exam: Positive: EOMI; Negative: Sclera icteric ENT Exam: Negative: Mucous membr. moist/pink (dry mucous membranes) Neck Exam: Positive: Supple Chest Exam: Positive: Clear to auscultation; Negative: Rales, Rhonchi, Wheezing Heart Exam: Positive: Tachycardic, Irregular Rhythm Telemetry: Positive: Atrial fibrillation, Tachycardia Abdomen Exam: Positive: Normal bowel sounds, Soft; Negative: Tenderness Extremity Exam: Positive: Other (warm toes); Negative: Clubbing, Cyanosis Neuro Exam: Positive: Cranial Nerves 3-12 NL Psych Exam: Positive: Mood NL Vital Signs Vital Signs Date Time Temp Pulse Resp B/P (MAP) Pulse Ox O2 Delivery O2 Flow Rate FiO2 04/06/20 15:34 105/60 (75) 04/06/20 15:30 111 18 94 Nasal Cannula 1.0 04/06/20 12:46 100.6 Laboratory Data Labs 24H Laboratory Tests 2 04/06/20 11:46: Immature Granulocyte % (Auto) 1.2, Neutrophils (%) (Auto) 89.8H, Lymphocytes (%) (Auto) 4.9L, Monocytes (%) (Auto) 3.9, Eosinophils (%) (Auto) 0.1, Basophils (%) (Auto) 0.1, Neutrophils # (Auto) 12.3H, Lymphocytes # (Auto) 0.7L, Monocytes # (Auto) 0.5, Eosinophils # (Auto) 0.0, Basophils # (Auto) 0.0, Nucleated Red Blood Cells % (auto) 0.2H, Prothrombin Time 14.1H, Prothromb Time International Ratio 1.07, Urine Color YELLOW, Urine Appearance CLOUDYH, Urine pH 5.0, Urine Specific [address] 1.013, Urine Protein 2+H, Urine Glucose (Auto)(UA) 1+H, Urine Ketones (Auto) NEGATIVE, Urine Blood 1+H, Urine Nitrite NEGATIVE, Urine Bilirubin NEGATIVE, Urine Urobilinogen 0.2, Urine Leukocyte Esterase (Auto) 3+H, Urine WBC (Auto) 104H, Urine RBC (Auto) 11H, Urine Hyaline Casts (Auto) 0, Urine Bacteria (Auto) 2+H, Urine Squamous Epithelial Cells 0, Urine Sperm (Auto) , Blood Gas Bicarbonate Standard 17.0, Venous Blood pH 7.272L, Venous Blood Partial Pressure CO2 38.1, Venous Blood Partial Pressure O2 49.3, Venous Blood Total Carbon Dioxide 18.4L, Venous Blood HCO3 17.2L, Venous Blood Oxygen Saturation 81.7H, Venous Blood Base Excess -9.0L, Anion Gap 10, Glomerular Filtration Rate 39.4, Lactic Acid Level 1.7, Calcium Level 9.3, Magnesium Level 1.4L, Total Bilirubin 0.3, Direct Bilirubin 0.1, Aspartate Amino Transf (AST/SGOT) 12, Alanine Aminotransferase (ALT/SGPT) 19, Alkaline Phosphatase 120H, Total Creatine Kinase 33, Creatine Kinase MB 2.2, Creatine Kinase MB Rela tive Index 6.67H, Troponin I 0.08, Total Protein 6.4, Albumin 2.4L, Albumin/Globulin Ratio 0.6L, Coronavirus (COVID-19)(PCR) NEGATIVE, Influenza Type A (RT-PCR) NEGATIVE, Influenza Type B (RT-PCR) NEGATIVE, Respiratory Syncytial Virus (PCR) NEGATIVE CBC/BMP Laboratory Tests 04/06/20 11:46 Microbiology Microbiology 04/06/20 Urine Culture, Received Pending 04/06/20 Blood Culture, Received Pending 04/06/20 Blood Culture, Received Pending Assessment/Plan Ms. Cuenca is an 79-year-old female with ankylosing spondylitis on methotrexate, hypertension, and diabetes mellitus, who is here with sepsis 2/2 left pyelonephritis and atrial fibrillation with rapid ventricular response. She has been having intermittent palpitations which may have been paroxysmal atrial fibrillation. Today is the first time it was caught on telemetry and EKG. Due to sepsis and hypotension, unable to use CCB or BB. Spoke with Cardiology, patient to receive a total dose of 0.5mg of IV digoxin now and to have the nurse reach out to him 1 hour after to see how she is doing. Otherwise. It is most likely infection that triggered the atrial fibrillation. Anticoagulation with IV heparin for the time being with her CKD. In terms of her sepsis, she has received more than 30mL/kg of IVF and IV antibiotics Plan / VTE VTE Prophylaxis Ordered?: Yes Plan Plan 1. Sepsis 2/2 left pyelonephritis -3/4 SIRS criteria (fever, tachycardia, and leukocytosis) -On IV Zosyn -IVF while hypotensive -Hold methotrexate and prednisone 2. Left pyelonephritis -Demonstrated on CT abd/pelvis and UA suggestive of infection -Reports urinary frequency -Pending urine culture results 3. Paroxysmal atrial fibrillation with RVR -She has been having intermittent palpitations, but no documentation of atrial fibrillation -Now has documentation on EKG and tele for atrial fibrillation -Responded to digoxin, but not yet controlled -IV heparin per afib protocol for anticoagulation 4. Ankylosing spondylitis, HLA b27 positive -Holding Methotrexate and prednisone due to infection 5. Gout -Continue allopurinol 6 CAD s/p stent -Performed in [place] -Patient tells me she has not followed with Cardiology. Only saw them once in [place] -Continue DAPT and Atorvastatin. Cannot tolerate JUVENAL/ARB, BB, or CCB at this time. 7. Diabetes mellitus -Consist Carbohydrate -Sliding scale insulin 8. DVT ppx -On heparin drip for atrial fibrillation ELISE ANDRE DO Apr 06, 2020 16:11
[2020-04-06] MEDS ORDERED: DEXTROSE 50% 50 ML SYRINGE IV PRN (17:45)
[2020-04-06] MEDS ORDERED: GLUCOSE 4GM CHEW TABLET PO PRN (17:45)
[2020-04-06] MEDS ORDERED: GLUCAGON INJ 1MG VIAL SC PRN (17:45)
[2020-04-06] MEDS: OMEPRAZOLE 20 MG CAP PO SCH (17:47)
[2020-04-06] MEDS: ATORVASTATIN 20 MG TAB PO SCH (17:47)
[2020-04-06] MEDS: allopurinoL 300 MG TAB PO SCH (17:48)
[2020-04-06] MEDS: CALCIUM CARBONATE 500 MG CHEW U/D PO SCH ×2 (17:48→21:11)
[2020-04-06 18:00] VITALS: BP 142/62
[2020-04-06] MEDS: HumaLOG INSULIN (NovoLOG) PER UNIT SC SCH (18:23)
[2020-04-06] MEDS: METOPROLOL TART 50 MG TAB PO SCH (18:24)
[2020-04-06 20:00] VITALS: BP 100/67
[2020-04-06] MEDS ORDERED: PIPERACILLIN/TAZOBACTAM SOD 4.5 GM in D5W MINI-BAG PLUS 50 ML IV SCH (20:00)
[2020-04-06] MEDS ORDERED: HumaLOG INSULIN (NovoLOG) PER UNIT SC SCH (21:00)
[2020-04-06] MEDS: APIXABAN 5 MG TAB (ELIQUIS) PO SCH (21:11)
[2020-04-06] MEDS: MAGNESIUM OXIDE 400 MG TAB (MAG-OX) PO SCH (21:12)
[2020-04-06] MEDS: PIPERACILLIN/TAZOBACTAM SOD 3.375 GM in D5W MINI-BAG PLUS 50 ML IV SCH (21:14)
[2020-04-06] MEDS ORDERED: ONDANSETRON 4MG/2ML VIAL IV PRN (22:45)
[2020-04-07] VITALS (29 sets, daily range): BP systolic 66–166; BP diastolic 0–84
[2020-04-07] MEDS: METOPROLOL TART 50 MG TAB PO SCH ×4 (00:26→17:54)
[2020-04-07] MEDS ORDERED: ACETAMINOPHEN TAB 650MG DOSE (2X325MG) PO PRN (01:30)
[2020-04-07] MEDS ORDERED: IPRATROPIUM 0.5MG/ALBUTEROL 2.5MG INH SOL UD 3ML (DUONEB) NEB ONE (02:00)
[2020-04-07] MEDS: NS 1,000 ML IV SCH ×2 (04:00→07:24)
[2020-04-07] MEDS: PIPERACILLIN/TAZOBACTAM SOD 3.375 GM in D5W MINI-BAG PLUS 50 ML IV SCH ×3 (04:00→14:51)
[2020-04-07] MEDS ORDERED: HYDROCORTISONE 100 MG/2 ML VIAL (J1720 PER 1) IV ONE (05:15)
[2020-04-07 05:16] LABS: HEMATOCRIT 30.8 % (36.0-47.0); HEMOGLOBIN 9.3 g/dl (12.0-15.5); MEAN CORPUSCULAR HEMOGLOBIN 29.1 pg (27.0-33.0); MEAN CORPUSCULAR HGB CONC 30.2 g/dl (32.0-36.5); MEAN CORPUSCULAR VOLUME 96.3 fl (80.0-96.0); PLATELET COUNT, AUTOMATED 232 10^3/uL (150-450); WHITE BLOOD COUNT 18.4 10^3/uL (4.0-10.0)
[2020-04-07 05:50] LABS: CALCIUM LEVEL 7.7 MG/DL (8.8-10.2); CREATININE FOR GFR 1.34 MG/DL (0.55-1.30); GLOMERULAR FILTRATION RATE 40.4 (>32); MAGNESIUM LEVEL 1.2 MG/DL (1.8-2.4); POTASSIUM SERUM 4.3 MEQ/L (3.5-5.1); TROPONIN I 1.67 NG/ML (< 0.10)
[2020-04-07] MEDS ORDERED: VANCOMYCIN HCL 750 MG, VIAL MATE ADAPTER 1 EACH in D5W 250 ML IV SCH (07:30)
[2020-04-07] MEDS: MAG SULF 1GM/100ML (MAG RUN) 1 GM in IV 1 EA IV SCH ×3 (08:15→14:51)
[2020-04-07] MEDS: allopurinoL 300 MG TAB PO SCH (08:17)
[2020-04-07] MEDS: CALCIUM CARBONATE 500 MG CHEW U/D PO SCH ×2 (08:17→15:30)
[2020-04-07] MEDS: OMEPRAZOLE 20 MG CAP PO SCH (08:17)
[2020-04-07] MEDS: APIXABAN 5 MG TAB (ELIQUIS) PO SCH (08:17)
[2020-04-07] MEDS: ATORVASTATIN 20 MG TAB PO SCH (08:17)
[2020-04-07 08:26] LABS: PERCENT SATURATION 6.2 % (13.2-45.0)
[2020-04-07] MEDS ORDERED: VANCOMYCIN HCL 1,000 MG, VIAL MATE ADAPTER 1 EACH in D5W 250 ML IV SCH (09:00)
[2020-04-07] MEDS ORDERED: ENOXAPARIN 30MG/0.3ML SYRINGE (J1650 PER 10MG) SC SCH (09:00)
[2020-04-07] MEDS ORDERED: DIGOXIN 0.125 MG TAB PO SCH (09:00)
[2020-04-07] MEDS: HumaLOG INSULIN (NovoLOG) PER UNIT SC SCH ×2 (09:17→12:40)
[2020-04-07] MEDS ORDERED: VANCOMYCIN HCL 500 MG in D5W MINI-BAG PLUS 100 ML IV ONE (10:00)
[2020-04-07] MEDS: MAGNESIUM OXIDE 400 MG TAB (MAG-OX) PO SCH (10:36)
[2020-04-07] MEDS ORDERED: HYDROCORTISONE 100 MG/2 ML VIAL (J1720 PER 1) IV SCH (11:00)
[2020-04-07] MEDS ORDERED: LEVALBUTEROL 1.25 MG/0.5 ML CONCENTRATE NEB INH PRN (11:45)
[2020-04-07] MEDS ORDERED: LEVE750T5 PO (14:08)
[2020-04-07 16:16] LABS: CLOSTRIDIUM DIFFICILE PCR NEGATIVE (NEGATIVE)
[2020-04-07] MEDS ORDERED: NS 500 ML IV ONE (17:00)
[2020-04-07] MEDS ORDERED: NS 1,000 ML IV SCH (17:15)
[2020-04-07 17:38] LABS: HEMATOCRIT 29.9 % (36.0-47.0); HEMOGLOBIN 8.8 g/dl (12.0-15.5); MEAN CORPUSCULAR HEMOGLOBIN 28.5 pg (27.0-33.0); MEAN CORPUSCULAR HGB CONC 29.4 g/dl (32.0-36.5); MEAN CORPUSCULAR VOLUME 96.8 fl (80.0-96.0); PLATELET COUNT, AUTOMATED 240 10^3/uL (150-450); RED BLOOD COUNT 3.09 10^6/uL (4.00-5.40); WHITE BLOOD COUNT 20.8 10^3/uL (4.0-10.0)
--- NOTE | 2020-04-07 18:02 | ECGEPIP ---
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
--- NOTE | 2020-04-07 18:06 | ECGEPIP ---
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
[2020-04-07] MEDS ORDERED: LORazepam 2 MG/ML VIAL IV PRN (18:30)
[2020-04-07] MEDS ORDERED: ONDANSETRON 4MG/2ML VIAL IV PRN (18:30)
[2020-04-07] MEDS ORDERED: SCOPOLAMINE 1MG TRANSDERMAL PATCH TOP PRN (18:30)
[2020-04-07] MEDS ORDERED: MORPHINE 2 MG/ML 1ML VIAL (J2270) IV PRN (18:30)
--- NOTE | 2020-04-07 19:37 | IPNPDOC ---
Subjective Date Seen The patient was seen on 04/07/20. Subjective Chief Complaint/HPI Mrs. Cuenca is an 79-year-old female with ankylosing spondylitis on methotrexate, hypertension, and diabetes mellitus, who is here with sepsis 2/2 left pyelonephritis and atrial fibrillation with rapid ventricular response. Overnight, she did not do well. She became hypotensive again. Stress dose steroids were given as she was chronically on steroids and fluids. This morning, her vitals were more stable. Continued steroids and added Vancomycin. This afternoon, her blood pressure started to drop and her breathing worsened. Ordered Xopenex which did help. She was becoming fluid positive. Cardiology called the unit and I spoke with the practice support specialist Dr. Bonilla. He looked at the echocardiogram. She had severe arterial pulmonary hypertension with pressures in the 90s. Her prognosis was grim. Spoke with the patient and patient's daughter (Kianna Clay) on speaker phone to let them know of her grim prognosis. Patient felt that it might be her time to go and had agreed to comfort measures. Daughter was present on phone when it occurred. 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 Mrs. Cuenca would like Kianna Obed and Hollis Cuenca to visit her. Mrs. Cuenca looks imminent as her breathing has worsened and her blood pressure continues to drop. Spoke with nursing press room supervisor about allowing these visitors to see her tonight. Objective Physical Examination General Exam: Positive: Cooperative, Moderate Distress Eye Exam: Positive: EOMI; Negative: Sclera icteric ENT Exam: Negative: Mucous membr. moist/pink (dry mucous membranes) Neck Exam: Positive: Supple Chest Exam: Positive: Rhonchi, Wheezing Heart Exam: Positive: Tachycardic, Irregular Rhythm Abdomen Exam: Positive: Normal bowel sounds, Soft; Negative: Tenderness Extremity Exam: Positive: Other (warm toes); Negative: Clubbing, Cyanosis Neuro Exam: Positive: Cranial Nerves 3-12 NL Psych Exam: Positive: Mood NL Assessment /Plan Assessment Mrs. Cuenca is an 79-year-old female with ankylosing spondylitis on methotrexate, hypertension, and diabetes mellitus, who is here with sepsis 2/2 left pyelonephritis and atrial fibrillation with rapid ventricular response. Cardiology, Dr. Bonilla, was consulted. He looked at her echocardiogram. She has severe arterial pulmonary hypertension and her prognosis is grim. Cardiology did not have any recommendations at this time, but to notify patient of grim prognosis. Spoke with patient with Kianna (daughter) on speaker phone. 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 She looks imminent with her breathing and blood pressure worsening. She may pass soon. I urged Mrs. Cuenca to have her visitors visit her tonight Plan/VTE VTE Prophylaxis Ordered?: No VTE Exclusion Mechanical Proph: Other (security solutions architect) VTE Exclusion Pharmacological: Other (security solutions architect) Plan Advance Directives: Comfort care 1. Sepsis 2/2 left pyelonephritis 2. Left pyelonephritis 3. Paroxysmal atrial fibrillation with RVR 4. Ankylosing spondylitis, HLA b27 positive 5. Gout 6 CAD s/p stent 7. 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 Prognosis is grim and she may pass soon. VS, I&O, 24H, Fishbone Vital Signs/I&O Vital Signs Date Time Temp Pulse Resp B/P (MAP) Pulse Ox O2 Delivery O2 Flow Rate FiO2 04/07/20 17:21 116 71/42 (52) Nasal Cannula 1.0 04/07/20 17:01 97 04/07/20 16:40 98.3 20 I&O- Last 24 Hours up to 6 AM 04/07/20 06:00 Intake Total 6520 ml Output Total 650 ml Balance 5870 ml Laboratory Data 24H LABS Laboratory Tests 2 04/06/20 21:13: Bedside Glucose (Misc Panel) 108 04/07/20 05:00: Nucleated Red Blood Cells % (auto) 0.2H, Anion Gap 9, Glomerular Filtration Rate 40.4, Calcium Level 7.7#L, Magnesium Level 1.2L, Troponin I 1.67#*H 04/07/20 05:12: Bedside Glucose (Misc Panel) 170H 04/07/20 07:34: Lactic Acid Level 1.1 04/07/20 09:12: Bedside Glucose (Misc Panel) 171H 04/07/20 11:44: Troponin I 1.19#H 04/07/20 12:34: Bedside Glucose (Misc Panel) 249H 04/07/20 13:51: Clostridium difficile [id number] PRESUMPTIVE NEGATIVE, Clostridium difficile Toxin (PCR) NEGATIVE 04/07/20 17:00: Bedside Glucose (Misc Panel) 359H 04/07/20 17:28: Nucleated Red Blood Cells % (auto) 0.1H CBC/BMP Laboratory Tests 04/07/20 05:00 04/07/20 17:28 Microbiology Microbiology 04/07/20 Stool Occult Blood (ALEX) - Final, Complete 04/06/20 Urine Culture, Received Pending 04/06/20 Blood Culture - Preliminary, Resulted No growth after 24 hours . All specim... 04/06/20 Blood Culture - Preliminary, Resulted ELISE ANDRE DO Apr 07, 2020 19:37
--- NOTE | 2020-04-07 21:42 | CR ---
CARDIOLOGY CONSULTATION DATE: 04/07/2020 REFERRING PHYSICIAN: Dr. Noy Harris INDICATION: Suspected atrial fibrillation with rapid ventricular response. HISTORY: Because of our COVID-19 pandemic, I did not meet with the patient [id number]. History was obtained primarily from the medical record, the ER physician and attending hospitalist. This 79-year-old resident of [place] has been followed by family practice since at least 1998 with multiple problems including Obesity, obstructive sleep apnea, COPD, and cor pulmonale (dating back to at least 2011). She also has a history of hypertension, single vessel coronary artery disease status stenting of single obtuse marginal branch of the circumflex artery and valvular heart disease. Over the years for chief limitation has been effort dyspnea and multiple orthopedic problems (known ankylosing spondylitis, and degenerative lumbar and peripheral joint disease). Known LV diastolic dysfunction and moderately severe pulmonary hypertension on chronic low-dose diuretic therapy. The walks only short distances with a walker. At the time of her last family medicine clinic visit February 10, 2020, again her chief complaint was arthritic despite multiple anti-inflammatory medications including topical Voltaren, low dose prednisone and Ottertail 5-325 1/2-one tablet q.h.s. At the time of her examination, heart rate was 94 BPM, blood pressure 108/70, respiratory rate 18, O2 saturation 98% on room air. BMI was 35.8. She did not appear to be in any acute distress but had bibasilar coarse rales. A holosystolic murmur was documented and at least 1 mm bilateral lower leg pitting edema. Blood work showed a hemoglobin of 11.5, white blood cell count of 14.5, electrolyte balance with BUN 22, creatinine 1.45. She was encouraged to comply with a modest salt and fluid intake restriction. Her proBNP level at that time was 716. Magnesium level was 1.0. Her medications included Lasix 20 mg daily with potassium and magnesium supplements, bisoprolol 5 mg daily, clopidogrel, aspirin, sublingual nitroglycerin as necessary, irbesartan 150 mg daily and Atorvastatin. The patient claimed since February, she has not been feeling well. She was seen in the urgent care center on February 13, 2020 and reportedly diagnosed with pneumonia. She presented to [facility] emergency room yesterday with malaise, cough, weakness, fever and some dysuria. Initial EKG showed sinus tachycardia with frequent PACs but no acute ischemic abnormality. Portable upright chest x-ray was reported to show heart size within normal limits for this technique, but could not rule out mild pulmonary vascular congestion. The lung you were otherwise clear with no pleural effusion, consolidation or pneumothorax. Blood work showed a hemoglobin of 10, white blood cell count of 13.7 thousand with 12% neutrophils. Electrolytes were in balance. However, her bicarb was reduced at 19, BUN 19, creatinine 1.37. Glucose was 285. Urine studies were negative for ketones. Lactic acid level was upper limits of normal, 1.7. Magnesium level was 1.4. Albumin was low at 2.4. Troponin I level was indeterminate at 0.08. CPK was normal. Iron study showed a normal serum ferritin at 161. bus monitor reportedly showed atrial tachyarrhythmia - atrial fibrillation? with rate up to 170 BPM with associated hypotension. (Unfortunately there is no such strip to review). Due to suspected sepsis and hypotension, she was given a total of 3 L of saline over the course of several hours with good effect. Cardiology consultation was placed remotely and I advised the administration of Digoxin up to a dose of 1 mg IV in divided doses should her rate remain in excess of 110 bpm. After having received a total of 0.75 mg with metoprolol 25 mg by mouth, her rate slowed to 107 beats per minute - Official report sinus tachycardia with first degree AV block. EKG ST/T wave abnormalities slightly more prominent with digoxin therapy but she remained free of chest pain. At this point, I recommended continuing with metoprolol 50 mg p.o.q.6h., withhold for heart rate less than 70 or systolic blood pressure less than 120 mmHg systolic. Her digoxin was to be continued at 0.125 mg. p.o.daily. She was admitted to a telemetry unit for close observation. CORONARY RISK FACTORS: Age, obesity, hypertension, hypercholesterolemia and diabetes. Non-smoker with no family history of premature coronary heart disease. OTHER PAST HISTORY: Longstanding history of esophageal reflux with hiatal hernia, status post esophageal dilatation. Chronic kidney disease - stage III chronic renal failure. Right external as well as internal carotid endarterectomy, September,. Right carotid stenting procedure September,. VITAL SIGNS: Heart rate 108 beats per minute, sinus tachycardia with frequent PACs on telemetry. Blood pressure was 148/78. Respiratory rate was 24 with O2 saturation 94% on supplemental oxygen by nasal prongs of two liters. Her temperature was 99 degrees Fahrenheit. Weight was 171 lb, height 59 inches, a BMI of 34.6. CHEST XRAY: Portable upright study taken in the emergency room yesterday afternoon was reviewed independently and it shows obvious cardiomegaly even allow for portable technique. Her thoracic aorta was slightly unfolded with obvious calcification of the aortic arch. Pulmonary arteries appeared to be prominent. She did not have pulmonary venous congestion, Efrain B-lines or peribronchial cuffing, no localized infiltrate or pleural effusion. EKGs: Tracing taken at 11:46, April 06, tracing April 06, 2020 at 1716 hours and today at 6 a.m. even though these were reported as showing intermittent atrial fibrillation, close scrutiny of the inferior leads clearly show P-waves prior to each QRS complex consistent with a sinus mechanism but frequent PACs, no evidence of atrial fibrillation. All show low voltages with slow precordial R-wave progression in keeping with her body habitus and pulmonary disease. Nonspecific ST/T wave abnormalities but no significant evolutionary pattern. ECHOCARDIOGRAM: Complete report dictated earlier today and reviewed with her primary provider covering her in the hospital. Normal left ventricular size and wall thickness. Septal wall motion abnormality due to right ventricular pressure overload but retained global left ventricular systolic function, ejection fraction estimated at 60%. Mildly dilated left atrium with grade 2 LV diastolic dysfunction and mildly elevated estimated mean left atrial pressure after having received three liters of saline in the emergency room. At least mild to moderately dilated right ventricle with right ventricular free wall hypokinesis and severe pulmonary hypertension with estimated right ventricular systolic pressure 93 mmHg. Right atrium was at least moderately dilated with IVC upper limits of normal to mildly dilated with absent respiratory collapse in keeping with elevated central venous pressure (right heart failure). Degenerative changes of her mitral and aortic valvular apparatus without aortic stenosis but mild to moderate aortic insufficiency, very mild mitral insufficiency and severe tricuspid insufficiency. Very small pericardiac effusion without cardiac chamber compression. BLOOD WORK: Serial complete blood counts showed a drop in her hemoglobin from 10.1 to 8.8 today following IV fluid administration. Serial white blood cell counts have shown an elevation from 13.7 to 20.8 this afternoon, contributing factor administration of steroid therapy parenterally. Platelet counts were all normal. Baseline PT/INR yesterday were also normal. A venous blood gas showed a pH of 7.27, pCO2 of 38, pO2 of 49, bicarb only 17.2. Chemistry this morning showed again metabolic acidosis with bicarb only 14. BUN was 16, creatinine 1.3. Fasting glucose was 175. Lactic acid level was 1.1. Magnesium level was 1.2 despite the supplement. Troponin I reached a maximum of 1.67 but drifted down six hours later to 1.19. Urinalysis on admission showed 2+ proteinuria, 1+ glycosuria, leukocyte esterase 3+ positive with pyuria and bacteriuria. Her COVID test was negative. C. difficile was negative. Blood cultures to date are negative. Stool for occult blood was negative. Urine culture is pending. IMPRESSION/PLAN: 1. Tachyarrhythmia (unspecified): From reviewing her serial electrocardiograms, there is no evidence of atrial fibrillation but underlying sinus tachycardia with frequent PACs. Based on this, I have recommended discontinuing her digoxin. I believe her sinus tachycardia is a reflection of her systemic illness and does not require primary therapy but selective beta eunice is suggested only for heart rate faster than 70 with blood pressure systolic of at least 120 mmHg, in light of her CAD. 2. Heart failure (diastolic/chronic): She has a longstanding history of hypertension but no EKG or echocardiographic evidence of left ventricular hypertrophy. She does have a left atrial enlargement with a degree of LV diastolic dysfunction. Mean left atrial pressure is only increased and related to her IV bolus fluid administration. Especially with her relative hypotension, would recommend against diuretic therapy at this time. 3. Coronary artery disease ([place]): Remote history of single vessel, small branch coronary stenting. Serial EKGs do show diffuse ST/T wave abnormalities likely related to her advanced or severe medical illness with digoxin administration. Serial troponin I levels were transiently significantly elevated but this is believed to be related to "demand ischemia" rather than acute coronary syndrome. Her echocardiogram showed a localized septal wall motion abnormality due to right ventricular pressure overload, no evidence of prior infarction. As mentioned above, beta eunice would be recommended only with the above hold parameters. At this point, would consider continuing her atorvastatin and low dose aspirin with low dose prophylactic, low molecular weight heparin. 4. Hypertensive heart disease (benign with heart failure): As per assessment #2, current blood pressure is soft because of her systemic infection. Renal function as described above. Ongoing metabolic acidosis believed to be a reflection of her infection. 5. Cor pulmonale/right heart failure: Her echocardiogram shows severe pulmonary hypertension with cor pulmonale and right heart failure below to be on the basis of her pulmonary disease, obstructive sleep apnea and obesity. Unfortunately, this is of an advanced degree and unlikely to be reversible. A combination of this problem with her acute medical illness, is extremely guarded. I have recommended the primary physician discuss DNR with the patient. I have been speaking regularly with Dr. Harris, the hospitalist involved with her care on the floor. I did not make [id number] contact with the patient due to COVID and her acute sepsis. I will continue to follow her with you. Please feel free to contact me at any time. Best regards. Yours sincerely, Fareed Bella MD, FACC Heraclio Hartman MD [facility]AMPUSAndrea
[2020-04-08] MEDS ORDERED: ACETAMINOPHEN TAB 650MG DOSE (2X325MG) PO ONE (06:15)
--- NOTE | 2020-04-08 10:58 | ECHO ---
DATE OF PROCEDURE: 04/06/2020 Age: 79 Gender: Female Height: 59 inches Weight: 165 pounds Body surface area: 1.7 m2 PATIENT LOCATION: Inpatient PCU, Room 3219. REFERRING PHYSICIAN: Seb Lara DO. INDICATION: Abnormal EKG, paroxysmal supraventricular tachycardia (PSVT). MEASUREMENTS: 2D Measurements: RV 4.5 cm LV 3.4 cm Septum 1.1 cm Posterior wall 1.0 cm Aortic Root 3.4 cm LA 4.3 cm LVEF 60% Doppler Measurements: AV 1.49 m/s LVOT 0.67 m/s LVOT diameter 1.7 cm MV-E 100, A 79, E/A ratio 1.3 Early mitral deceleration time 185 msec E prime medial 6.6, A prime medial 5.0, E prime lateral 6.9 Average E/E prime ratio 14.8/PCWP 20.3 mmHg PV 0.7 m/s Pulmonary artery acceleration time 55 msec RVSP 93 mmHg IVC 2.0 cm COMMENTS: Underlying sinus rhythm with frequent PACs. No apparent intraventricular conduction disturbance. M-mode and two-dimensional echocardiography was performed with pulse, continuous wave, color flow, and tissue Doppler studies. Normal left ventricular size with wall thickness upper limits of normal. Septal wall motion abnormality believed to be related to right ventricular pressure overload, but other left ventricular wall segments move normally with preserved global resting systolic function. Mildly dilated left atrium with Doppler evidence of grade 2 LV diastolic dysfunction and mildly elevated estimated mean left atrial pressure. At least [id number] dilated right ventricle with right ventricular free wall hypokinesis and Doppler evidence of severe pulmonary hypertension. At least moderately dilated right atrium and IVC size upper limits of normal with reduced respiratory collapse in keeping with elevated central venous pressure (right heart failure). Normal aortic diameters. Mild-moderate thickening of the aortic valvular apparatus with adequate cusp separation with Doppler evidence of mild-moderate aortic insufficiency. Mild degenerative changes of the mitral valve apparatus without inflow tract obstruction and only very mild insufficiency. Normal appearing tricuspid valve with severe tricuspid insufficiency. No apparent intracardiac mass. Small circumferential pericardial effusion measuring 3 mm. No evidence of cardiac chamber compression. A preliminary report of this study was relayed directly to Dr. Lara 04/07/2020. Based on the above findings, her prognosis is extremely guarded. MTDD
[2020-04-08] MEDS ORDERED: MORP20SO3 PO (12:21)
[2020-04-08] MEDS ORDERED: ATIV1TAB10 PO (12:21)
[2020-04-08] MEDS ORDERED: HYOS125TA PO (12:21)
[2020-04-08] MEDS ORDERED: VENTAER INH (12:27)
[2020-04-08] MEDS ORDERED: ALBUTEROL 90 MCG/ACT 8GM HFA INHALER INH PRN (12:30)
--- NOTE | 2020-04-09 00:22 | DS.PDOC ---
Discharge Summary General Date of Admission Apr 06, 2020 at 14:35 Date of Discharge Apr 08, 2020 Attending Physician: ELISE ANDRE DO Specialist/Consultants [facility], Dr. Bonilla Discharge Summary PROCEDURES PERFORMED DURING STAY: None ADMITTING DIAGNOSES: 1. Sepsis 2/2 left pyelonephritis 2. Paroxysmal atrial fibrillation with RVR 3. Ankylosing spondylitis, HLA b27 positive 4. Gout 5. CAD s/p stent 6. DM DISCHARGE DIAGNOSES: 1. Severe pulmonary arterial hypertension 2. Sepsis 2/2 left pyelonephritis 3. Sinus tachycardia with frequent PAC 4. Ankylosing spondylitis, HLA b27 positive 5. Gout 6. CAD s/p stent 7. DM COMPLICATIONS/CHIEF COMPLAINT: Afib With Rapid Ventricular Response, Pyelonephritis. HISTORY OF PRESENT ILLNESS: Mrs. Cuenca is an 79-year-old female with ankylosing spondylitis on methotrexate, hypertension, and diabetes mellitus was a who presents with malaise, cough, palpitations, and lower urinary tract symptoms. Since February, she has not been feeling well. She saw her PCP on February 12 for urgent care follow-up for pneumonia. At that time she also reported palpitations. She tells me that she's been having palpitations intermittently for a long time but could not give me a range. She's never been diagnosed with atrial fibrillation before. This past week her palpitations and lightheadedness had gotten worse so she came into the ED. While in the ED, her temperature peaked at 103 deg F. Heart rate ranged from 170s to 200s and SBP was low in the 70s. She was found to have pyelonephritis of left kidney seen on CT abd/pelvis. UA also suggestive of infection. She was given Rocephin and 3L of fluid. Blood pressure responded to fluid, but heart rate was unchanged. She was given 0.25mg of IV Digoxin which did not help. Cardiology was consulted. Recommended given another 0.25mg IV to see how she would respond. She will be admitted for sepsis 2/2 left pyelonephritis and atrial fibrillation with RVR HOSPITAL COURSE: Overnight, she became hypotensive again. Night team gave more fluid and stress dose steroids since she was chronically on prednisone. That morning, antibiotic coverage was broadened to include Vancomycin and Hydrocortisone was scheduled. She initially did well, but towards the end of the day, her blood pressure started to drop. She was fluid positive by almost 5L and she started to feel short of breath. Despite fluids, stress dose steroids, and broad spectrum antibiotics her blood pressure could not be maintained and the idea of central line and vasopressors were entertained. Cardiology called the unit to discuss the echocardiogram. She had severe pulmonary arterial hypertension with pressure estimated to be 90. Cardiology reported that her prognosis was grim with her hypotension and severe pulmonary arterial hypertension. Cardiology did not have any further recommendations. Patient was full code at that time. Spoke to patient about code status and grim prognosis. Patient had me speak with daughter, Kianna, on speaker phone. After discussing the situation, patient decided she wanted comfort measures only. She was made [employer]. She had two visitors, Kianna and Hollis. The following day, [facility] reached out to hospice. Unfortunately, they would not be able to see her until Sunday. Patient was okay with this as she wanted to go home to be with family. Otherwise, we tried to get her to be approved for oxygen, but she was doing well off of oxygen. Oxygen would have provided her comfort, but since she was not on hospice at this time, we could not get oxygen. Patient understand we would not send her home with oxygen. Patient felt ready for home and was discharged home. DISCHARGE MEDICATIONS: Please see below. ALLERGIES: Please see below. PHYSICAL EXAMINATION ON DISCHARGE: VITAL SIGNS: Please see below. GENERAL: Mild respiratory distress RESPIRATORY EXAMINATION: Has difficulty completing sentences ABDOMINAL EXAMINATION: Obese EXTREMITIES: Pitting edema PSYCHIATRIC EXAMINATION: Anxious to go home LABORATORY DATA: Please see below. IMAGING: (Radiology impression) CT abd/pelvis There is perinephric stranding adjacent to the lower pole of the left kidney which may be a manifestation of pyelonephritis if clinically consistent. There is no evidence of hydronephrosis or left-sided obstructive uropathy. There are 2 intrarenal calculi in the right kidney. No right-sided hydronephrosis. PROGNOSIS: Extremely guarded ACTIVITY: As tolerated. DIET: As desired. DISCHARGE PLAN: Home DISPOSITION: , Self-Care. DISCHARGE INSTRUCTIONS: 1. Follow up with Hospice on Sunday 2. Sent comfort care medications to your pharmacy (liquid morphine, lorazepam, scopolamine, and albuterol) DISCHARGE CONDITION: Guarded Total time spent on discharge planning, discharge summary, and medication reconciliation: 55 minutes Vital Signs/I&Os Vital Signs Date Time Temp Pulse Resp B/P (MAP) Pulse Ox O2 Delivery O2 Flow Rate FiO2 04/08/20 13:00 2.0 04/07/20 17:21 116 71/42 (52) Nasal Cannula 04/07/20 17:01 97 04/07/20 16:40 98.3 20 I&O- Last 24 Hours up to 6 AM 04/09/20 06:00 Intake Total 360 ml Balance 360 ml Microbiology Microbiology 04/07/20 Stool Occult Blood (ALEX) - Final, Complete 04/06/20 Urine Culture - Final, Complete Escherichia Coli 04/06/20 Blood Culture - Preliminary, Resulted No Growth after 48 hours. All Specime... 04/06/20 Blood Culture - Preliminary, Resulted Discharge Medications Scheduled PRN Albuterol Sulfate (Ventolin Hfa) 18 Gm Hfa.aer.ad, 2 PUFF INH Q4HP PRN for SHORTNESS OF BREATH Hyoscyamine Sulfate (Hyoscyamine Sulfate) 0.125 Mg Tab.subl, 0.125 MG PO Q4HP PRN for TERMINAL SECRETIONS Use sublingually if unable to swallow Lorazepam (Ativan) 0.5 Mg Tablet, 0.5 MG PO Q4HP PRN for ANXIETY/AGITATION Use sublingually if unable to swallow Morphine Sulfate (Morphine Sulfate) 100 Mg/5 Ml Solution, 0.25-1 ML PO Q2H PRN for PAIN OR DYSPNEA Use sublingually if unable to swallow Allergies Coded Allergies: Influenza Virus Vaccines (Verified Allergy, Intermediate, LARGE LOCALIZED REACTION, 11/27/18) Contrast Media (Unverified Allergy, Unknown, 02/12/09) latex (Verified Allergy, Unknown, 11/27/18) amlodipine (Verified Adverse Reaction, Mild, HEADACHE, 11/27/18) cefdinir (Verified Adverse Reaction, Mild, DIARRHEA, 11/27/18) moxifloxacin (Verified Adverse Reaction, Mild, 11/27/18) ELISE ANDRE DO Apr 09, 2020 00:22
--- NOTE | 2020-04-12 19:20 | ECGEPIP ---
[facility] - ED Test Date: 2020-04-06 Pat Name: NEGAR SHARP Department: Room: S3750-90 Gender: Female Joint Runner: robert : 1940 Requested By: Hermelinda House Order Number: [id number] Reading MD: Roni Mendez Measurements Intervals [place] Rate: 169 P: DE: 0 QRS: 3 QRSD: 83 T: 70 QT: 248 QTc: 417 Interpretive Statements ATRIAL FIBRILLATION WITH RAPID VENTRICULAR RESPONSE SEPTAL MYOCARDIAL INFARCTION, PROBABLY OLD DELAYED R WAVE PROGRESSION NONSPECIFIC ST T WAVE CHANGES CW 04/06/[address] T WAVE CHANGES Electronically Signed on 04-12-2020 19:20:42 EST by Roni Mendez
== END 2020-04-08 14:54 | disposition home or self-care (01) | DRG 872 ==
LOC: EDBD 11:34 → M ED 11:34 → M ED INP 14:35 → M PCU 16:56 → M MSPAV 04-08 00:14
PROVIDERS: ADMIT Internal Medicine; ATTEND Internal Medicine
DX: A41.9 Sepsis, unspecified organism (principal); N10 Acute pyelonephritis; I50.32 Chronic diastolic (congestive) heart failure; I48.0 Paroxysmal atrial fibrillation; M10.9 Gout, unspecified; I25.10 Atherosclerotic heart disease of native coronary artery without angina pectoris; E11.9 Type 2 diabetes mellitus without complications; Z95.2 Presence of prosthetic heart valve; M45.9 Ankylosing spondylitis of unspecified sites in spine; Z79.899 Other long term (current) drug therapy; Z91.040 Latex allergy status; Z91.041 Radiographic dye allergy status; Z88.8 Allergy status to other drugs, medicaments and biological substances; Z88.7 Allergy status to serum and vaccine; D50.9 Iron deficiency anemia, unspecified; J45.909 Unspecified asthma, uncomplicated; E55.9 Vitamin D deficiency, unspecified; I27.20 Pulmonary hypertension, unspecified; I27.81 Cor pulmonale (chronic); I11.0 Hypertensive heart disease with heart failure